=== PATIENT | male | born 1980 | race Caucasian/White ===

== ENCOUNTER 2018-02-01 20:55 | Emergency (ER) | payer OTHER ==
[2018-02-01 21:16] VITALS: BP 185/105; PULSE 85; RESP 18; TEMP 97.8; O2SAT 99
[2018-02-01] MEDS ORDERED: ESCI20TA PO (21:40)
[2018-02-01] MEDS ORDERED: ZOLP10TA3 PO (21:40)
[2018-02-01 21:41] VITALS: RESP 18; O2SAT 100
[2018-02-01 21:42] VITALS: BP 163/103; PULSE 86; RESP 18; O2SAT 100
[2018-02-01 21:44] VITALS: BP 170/100; PULSE 82; RESP 18; O2SAT 100
[2018-02-01] MEDS ORDERED: ONDANSETRON HCL 4 MG/2 ML VIAL IV PUSH ONE (21:45)
[2018-02-01] MEDS ORDERED: MORPHINE SULFATE 4 MG/ML INJ IV PUSH ONE (21:45)
[2018-02-01] MEDS ORDERED: SODIUM CHLORIDE 0.9% FLUSH 10 ML FLUSH IVF PRN (21:45)
--- NOTE | 2018-02-01 21:49 | PD ---
HPI Chief Complaint: Chest Pain Time Seen by Provider: 21:37 Travel History International Travel<30 days: No Contact w/Intl Traveler<30days: No Traveled to known affect area: No History of Present Illness HPI Patient is a 37-year-old male presenting to the emergency department for evaluation of chest pain. Pain started approximately 10 minutes prior to arrival. Patient states he was at home, he had recently eaten dinner. The pain started fairly soon after that. The pain is midsternal in nature on others no radiation to his arm or jaw. He states is pressure-like and burning. He reports his pain is a 5 out of 10, the pain has improved since he was administered nitroglycerin by EMS. He also received 324mg of aspirin chewable. Patient reports a history of hypertension, he states his primary doctor took him off of his medications. Patient had a gastric sleeve last year and has lost 120 pounds which is the reason he is off of his blood pressure medicines. He denies any illicit drug use, he denies any tobacco use. Patient felt short of breath and clammy when the pain started. Symptom onset was sudden, symptom severity was moderate to severe. Symptoms may have been aggravated by food, they were not alleviated until he received nitroglycerin. PFSH Past Medical History Hypertension: Yes ?: Not Past Surgical History Abdominal Surgery: Yes (gastric bypass) Social History Alcohol Use: Yes Tobacco Use: No Substance Use: No Allergies-Medications (Allergen,Severity, Reaction): Coded Allergies: No Known Allergies (Verified Allergy, Unknown, 02/01/18) Reported Meds & Prescriptions Reported Meds & Active Scripts Active Reported Escitalopram (Escitalopram Oxalate) 20 Mg Tab 20 Mg PO DAILY Zolpidem (Zolpidem Tartrate) 10 Mg Tab 10 Mg PO HS PRN Review of Systems Except as stated in HPI: all other systems reviewed are Neg Cardiovascular: Positive: Chest Pain or Discomfort, Diaphoresis Respiratory: Positive: Shortness of Breath Gastrointestinal: Positive: Indigestion Physical Exam Narrative GENERAL: Overweight, well-developed, alert male. Presenting in no acute distress. SKIN: Warm and dry. HEAD: Atraumatic. Normocephalic. EYES: Pupils equal and round. No scleral icterus. No injection or drainage. ENT: No nasal bleeding or discharge. Mucous membranes pink and moist. NECK: Trachea midline. No JVD. CARDIOVASCULAR: Regular rate and rhythm. RESPIRATORY: No accessory muscle use. Clear to auscultation. Breath sounds equal bilaterally. GASTROINTESTINAL: Abdomen soft, non-tender, nondistended. Hepatic and splenic margins not palpable. MUSCULOSKELETAL: Extremities without clubbing, cyanosis, or edema. No obvious deformities. NEUROLOGICAL: Awake and alert. No obvious cranial nerve deficits. Motor grossly within normal limits. Five out of 5 muscle strength in the arms and legs. Normal speech. Legally blind PSYCHIATRIC: Appropriate mood and affect; insight and judgment normal. Data Data Last Documented VS Vital Signs Date Time Temp Pulse Resp B/P (MAP) Pulse Ox O2 Delivery O2 Flow Rate FiO2 02/01/18 21:42 86 18 163/103 (123) 100 Nasal Cannula 2.00 02/01/18 21:16 97.8 Orders Orders Electrocardiogram (02/01/18 21:37) Ckmb (Isoenzyme) Profile (02/01/18 21:37) Complete Blood Count With Diff (02/01/18 21:37) Comprehensive Metabolic Panel (02/01/18 21:37) Magnesium (Mg) (02/01/18 21:37) Prothrombin Time / Inr (Pt) (02/01/18 21:37) Act Partial Throm Time (Ptt) (02/01/18 21:37) Troponin I (02/01/18 21:37) Lipase (02/01/18 21:37) Chest, Single Ap (02/01/18 21:37) Ecg Monitoring (02/01/18 21:37) Bilateral Bp Monitoring (02/01/18 21:37) Iv Access Insert/Monitor (02/01/18 21:37) Oximetry (02/01/18 21:37) Oxygen Administration (02/01/18 21:37) Morphine Inj (Morphine Inj) (02/01/18 21:45) Sodium Chloride 0.9% Flush (Ns Flush) (02/01/18 21:45) Ondansetron Inj (Zofran Inj) (02/01/18 21:45) MDM Medical Decision Making Medical Screen Exam Complete: Yes Emergency Medical Condition: Yes Interpretation(s) Vital Signs Date Time Temp Pulse Resp B/P (MAP) Pulse Ox O2 Delivery O2 Flow Rate FiO2 02/01/18 21:42 86 18 163/103 (123) 100 Nasal Cannula 2.00 02/01/18 21:41 100 Nasal Cannula 2.00 02/01/18 21:41 18 100 Nasal Cannula 2.00 02/01/18 21:16 97.8 85 18 185/105 (131) 99 Differential Diagnosis ACS versus [place] versus metabolic abnormality versus indigestion versus less likely AAA versus PE Narrative Course Patient is 37-year-old male with a history of hypertension presenting with an abrupt onset of midsternal chest pain. Patient was hypertensive on arrival, blood pressure trended down after administration of nitroglycerin. Labs and imaging ordered and pending. Initial EKG shows normal sinus rhythm rate of 79, this is reviewed by my attending physician. Care of patient transferred to Dr. Pink who will determine patient's disposition. Trudy Kinney Feb 01, 2018 21:49
--- NOTE | 2018-02-01 22:14 | RADRPT ---
EXAM DATE/TIME: 02/01/2018 21:45 [facility] COMPARISON: No previous studies available for comparison. INDICATIONS : Chest pain. MEDICAL HISTORY : None. SURGICAL HISTORY : None. ENCOUNTER: Initial ACUITY: 1 day PAIN SCORE: 5/10 LOCATION: middle chest. FINDINGS: A single view of the chest demonstrates the lungs to be symmetrically aerated without evidence of mas s, infiltrate or effusion. The cardiomediastinal contours are unremarkable. Osseous structures are intact. CONCLUSION: No evidence of acute cardiopulmonary disease. Adrian Gonzalez MD on February 01, 2018 at 22:12 Board Certified Radiologist. This report was verified electronically.
[2018-02-01 22:20] LABS: AUTOMATED NEUTROPHIL # 5.1 TH/MM3 (1.8-7.7); BASOPHIL % 0.6 % (0.0-2.0); EOSINOPHIL # 0.2 TH/MM3 (0-0.4); EOSINOPHIL % 2.1 % (0.0-4.0); HEMATOCRIT 40.9 % (39.0-51.0); HEMOGLOBIN 14.1 GM/DL (13.0-17.0); LYMPH % 24.5 % (9.0-44.0); LYMPHOCYTE # 1.9 TH/MM3 (1.0-4.8); MEAN CELL VOLUME 86.9 FL (80.0-100.0); MEAN CORPUSCULAR HEMOGLOBIN 29.9 PG (27.0-34.0); MEAN CORPUSCULAR HGB CONC 34.4 % (32.0-36.0); MEAN PLATELET VOLUME 7.5 FL (7.0-11.0); MONO % 7.7 % (0.0-8.0); MONOCYTE # 0.6 TH/MM3 (0-0.9); NEUT % 65.1 % (16.0-70.0); PLATELET COUNT 289 TH/MM3 (150-450); RED BLOOD COUNT 4.71 MIL/MM3 (4.50-5.90); RED CELL DISTRIBUTION WIDTH 12.8 % (11.6-17.2); WHITE BLOOD COUNT 7.8 TH/MM3 (4.0-11.0)
[2018-02-01 22:40] LABS: INTERNATIONAL NORMALIZED RATIO 1.1 RATIO; PROTHROMBIN TIME - PATIENT 10.7 SEC (9.8-11.6)
[2018-02-01 22:58] LABS: ALKALINE PHOSPHATASE 69 U/L (45-117); ALT (GPT) 38 U/L (12-78); TOTAL BILIRUBIN ADULT 0.4 MG/DL (0.2-1.0); TOTAL PROTEIN 6.6 GM/DL (6.4-8.2); TROPONIN I LESS THAN 0.02 NG/ML (0.02-0.05)
[2018-02-01 23:14] LABS: ALBUMIN 3.6 GM/DL (3.4-5.0); AST (GOT) 68 U/L (15-37); BICARBONATE 27.6 MEQ/L (21.0-32.0); BLOOD UREA NITROGEN 14 MG/DL (7-18); CALCIUM 8.4 MG/DL (8.5-10.1); CHLORIDE 108 MEQ/L (98-107); CREATININE 1.08 MG/DL (0.60-1.30); GLOMERULAR FILTRATION RATE 76 ML/MIN (>89); GLUCOSE,RANDOM 100 MG/DL (74-106); MAGNESIUM 2.1 MG/DL (1.5-2.5); SODIUM (NA) 144 MEQ/L (136-145)
[2018-02-01] MEDS ORDERED: GAVISUS2 PO (23:49)
--- NOTE | 2018-02-01 23:55 | PD ---
Data Data Last Documented VS Vital Signs Date Time Temp Pulse Resp B/P (MAP) Pulse Ox O2 Delivery O2 Flow Rate FiO2 02/01/18 21:44 82 18 170/100 (123) 100 Nasal Cannula 2.00 02/01/18 21:16 97.8 Orders Orders Electrocardiogram (02/01/18 21:37) Ckmb (Isoenzyme) Profile (02/01/18 21:37) Complete Blood Count With Diff (02/01/18 21:37) Comprehensive Metabolic Panel (02/01/18 21:37) Magnesium (Mg) (02/01/18 21:37) Prothrombin Time / Inr (Pt) (02/01/18 21:37) Act Partial Throm Time (Ptt) (02/01/18 21:37) Troponin I (02/01/18 21:37) Lipase (02/01/18 21:37) Chest, Single Ap (02/01/18 21:37) Ecg Monitoring (02/01/18 21:37) Bilateral Bp Monitoring (02/01/18 21:37) Iv Access Insert/Monitor (02/01/18 21:37) Oximetry (02/01/18 21:37) Oxygen Administration (02/01/18 21:37) Morphine Inj (Morphine Inj) (02/01/18 21:45) Sodium Chloride 0.9% Flush (Ns Flush) (02/01/18 21:45) Ondansetron Inj (Zofran Inj) (02/01/18 21:45) CKMB (02/01/18 21:45) CKMB% (02/01/18 21:45) Ed Discharge Order (02/01/18 23:26) Labs Laboratory Tests Test 02/01/18 21:45 White Blood Count 7.8 TH/MM3 Red Blood Count 4.71 MIL/MM3 Hemoglobin 14.1 GM/DL Hematocrit 40.9 % Mean Corpuscular Volume 86.9 FL Mean Corpuscular Hemoglobin 29.9 PG Mean Corpuscular Hemoglobin Concent 34.4 % Red Cell Distribution Width 12.8 % Platelet Count 289 TH/MM3 Mean Platelet Volume 7.5 FL Neutrophils (%) (Auto) 65.1 % Lymphocytes (%) (Auto) 24.5 % Monocytes (%) (Auto) 7.7 % Eosinophils (%) (Auto) 2.1 % Basophils (%) (Auto) 0.6 % Neutrophils # (Auto) 5.1 TH/MM3 Lymphocytes # (Auto) 1.9 TH/MM3 Monocytes # (Auto) 0.6 TH/MM3 Eosinophils # (Auto) 0.2 TH/MM3 Basophils # (Auto) 0.0 TH/MM3 CBC Comment DIFF FINAL Differential Comment Prothrombin Time 10.7 SEC Prothromb Time International Ratio 1.1 RATIO Activated Partial Thromboplast Time 26.4 SEC Blood Urea Nitrogen 14 MG/DL Creatinine 1.08 MG/DL Random Glucose 100 MG/DL Total Protein 6.6 GM/DL Albumin 3.6 GM/DL Calcium Level 8.4 MG/DL Magnesium Level 2.1 MG/DL Alkaline Phosphatase 69 U/L Aspartate Amino Transf (AST/SGOT) 68 U/L Alanine Aminotransferase (ALT/SGPT) 38 U/L Total Bilirubin 0.4 MG/DL Sodium Level 144 MEQ/L Potassium Level 4.1 MEQ/L Chloride Level 108 MEQ/L Carbon Dioxide Level 27.6 MEQ/L Anion Gap 8 MEQ/L Estimat Glomerular Filtration Rate 76 ML/MIN Total Creatine Kinase 114 U/L Creatine Kinase MB 1.0 NG/ML Troponin I LESS THAN 0.02 NG/ML Lipase 146 U/L [facility] Medical Record Reviewed: Yes Supervised Visit with FLORINDA: Yes Narrative Course CBC & BMP Diagram 02/01/18 21:45 Total Protein 6.6, Albumin 3.6, Calcium Level 8.4 L, Magnesium Level 2.1, Alkaline Phosphatase 69, Aspartate Amino Transf (AST/SGOT) 68 H, Alanine Aminotransferase (ALT/SGPT) 38, Total Bilirubin 0.4 EKG shows a sinus rhythm with a rate of 79 and possible LVH type morphology Chest x-ray shows no acute cardiopulmonary disease Patient was reassessed at 11:45 PM at that point reported feeling much better. His risk profile is really fairly unremarkable with his age and no chronic disease aside from hypertension. In this scenario coronary occlusion is considered quite a bit unlikely. The patient understands a stress test as an outpatient with cardiology evaluation is in essence the only way to ensure that coronaries are clean. Patient appears quite reliable and has verbalized agreement to follow-up with cardiology in 2 weeks. He reports insurance and needs to do so. Furthermore the symptoms began in association with oral intake earlier today again lending evidence to diagnose against acute coronary disease. Pulmonary disease is considered also quite a bit less likely. Return precautions discussed. Diagnosis Primary Impression: Chest pain Qualified Codes: R07.9 - Chest pain, unspecified Additional Impression: GERD (gastroesophageal reflux disease) Referrals: Enoch Pink DO 2 days Med/Other Pt SpecificInfo: Prescription(s) given Scripts Aluminum Hydroxide-Mag Carb Liq (Gaviscon Extra Strength R Liq) 508-475 Mg/10 Ml Susp 10-20 ML PO QID Y for HEARTBURN for 10 Days, ML 0 Refills Maximum 80 mL/24 hrs. Prov: Gordon Pink MD 02/01/18 Disposition: DISCHARGE HOME Condition: Stable Gordon Pink MD Feb 01, 2018 23:55
[2018-02-02 00:02] VITALS: BP 165/87
[2018-02-03] MEDS ORDERED: HYDR-3288 PO (09:52)
--- NOTE | 2018-02-03 17:49 | EKG ---
Date Performed: 02/01/2018 Time Performed: 21:41:16 PTAGE: 37 years EKG: Sinus rhythm MODERATE VOLTAGE CRITERIA FOR LVH, CONSIDER NORMAL VARIANT BORDERLINE ECG NO PREVIOUS TRACING DOCTOR: Adonay Lamas Interpretating Date/Time 02/03/2018 17:48:11
== END 2018-02-02 00:03 | disposition home or self-care (01) ==
LOC: NEPC 20:55
DX: R07.9 Chest pain, unspecified (principal); R06.02 Shortness of breath; K21.9 Gastro-esophageal reflux disease without esophagitis; I10 Essential (primary) hypertension; Z79.899 Other long term (current) drug therapy
CPT/HCPCS: 71045; 80053; 82550; 82552; 83690; 83735; 84484; 85025; 85610; 85730; 93005; 96374; 96375; 99285; J2270; J2405

== ENCOUNTER 2018-02-02 07:28 | Inpatient (IN) | payer OTHER ==
[~2018-02-02] VITALS: Ht 185.4 cm; Wt 125.5 kg
[~2018-02-02 07:28] MED LIST: ESCI20TA PO; GAVISUS2 PO; ZOLP10TA3 PO
[2018-02-02 07:31] VITALS: BP 195/117; PULSE 69; RESP 22; TEMP 98.4; O2SAT 100
[2018-02-02] MEDS ORDERED: SODIUM CHLOR 0.9% 1000 ML INJ 1,000 ML IV SCH (08:10)
[2018-02-02] MEDS ORDERED: HYDROmorphone HCL PF 1 MG/ML VIAL IVS ONE (08:15)
[2018-02-02] MEDS ORDERED: ONDANSETRON HCL 4 MG/2 ML VIAL IVP ONE (08:15)
[2018-02-02] MEDS ORDERED: SODIUM CHLORIDE 0.9% FLUSH 10 ML FLUSH IV FLUSH PRN (08:15)
--- NOTE | 2018-02-02 08:17 | PD ---
HPI Chief Complaint: GI Complaint Time Seen by Provider: 07:57 Travel History International Travel<30 days: No Contact w/Intl Traveler<30days: No Traveled to known affect area: No History of Present Illness HPI This patient complains of pain in the epigastrium. Pain is moderate to severe in nature. It radiates up into his chest. He was seen here yesterday evening for the same thing. He says he is no better but seems worse. He is having dry heaves and nausea and vomiting. He says he is vomiting bile through the night. No fever or diarrhea. No lower quadrant abdominal pains. Duration is one day. No alleviating factors. No exacerbating factors. PFSH Past Medical History Anxiety: Yes Depression: Yes Hypertension: Yes Insomnia: Yes Past Surgical History Abdominal Surgery: Yes (gastric bypass) Social History Alcohol Use: Yes Tobacco Use: No Substance Use: No Allergies-Medications (Allergen,Severity, Reaction): Coded Allergies: No Known Allergies (Verified Allergy, Unknown, 02/01/18) Reported Meds & Prescriptions Reported Meds & Active Scripts Active Reported Escitalopram (Escitalopram Oxalate) 20 Mg Tab 20 Mg PO DAILY Zolpidem (Zolpidem Tartrate) 10 Mg Tab 10 Mg PO HS PRN Review of Systems General / Constitutional: No: Fever Eyes: No: Visual changes HENT: No: Headaches Cardiovascular: Positive: Chest Pain or Discomfort Respiratory: No: Shortness of Breath Gastrointestinal: Positive: Nausea, Vomiting, Abdominal Pain Genitourinary: No: Dysuria Musculoskeletal: No: Pain Skin: No Rash Neurologic: No: Weakness Psychiatric: No: Depression Endocrine: No: Polydipsia Hematologic/Lymphatic: No: Easy Bruising Physical Exam Narrative GENERAL: Well-nourished, well-developed patient with abdominal pain and chest pain . SKIN: Focused skin assessment reveals no rash and nodules. Skin is Warm and dry. HEAD: Atraumatic. Normocephalic. EYES: Pupils equal and round. No scleral icterus. No injection or drainage. ENT: No nasal bleeding or discharge. Mucous membranes pink and moist. NECK: Trachea midline. No JVD. CARDIOVASCULAR: Regular rate and rhythm. No murmur appreciated. RESPIRATORY: No accessory muscle use. Clear to auscultation. Breath sounds equal bilaterally. GASTROINTESTINAL: Abdomen soft, epigastrium is very tender without rebound or guarding, nondistended. Hepatic and splenic margins not palpable. MUSCULOSKELETAL: No obvious deformities. No clubbing. No cyanosis. No edema. NEUROLOGICAL: Awake and alert. No obvious cranial nerve deficits. Motor grossly within normal limits. Normal speech. PSYCHIATRIC: Appropriate mood and affect; insight and judgment normal. Data Data Last Documented VS Vital Signs Date Time Temp Pulse Resp B/P (MAP) Pulse Ox O2 Delivery O2 Flow Rate FiO2 02/02/18 10:56 81 20 144/97 (113) 97 Room Air 02/02/18 07:31 98.4 Orders Orders Complete Blood Count With Diff (02/02/18 08:10) Comprehensive Metabolic Panel (02/02/18 08:10) Lipase (02/02/18 08:10) Prothrombin Time / Inr (Pt) (02/02/18 08:10) Act Partial Throm Time (Ptt) (02/02/18 08:10) Ct Abd/Pel W Iv Contrast(Rout) (02/02/18 08:10) Iv Access Insert/Monitor (02/02/18 08:10) Ecg Monitoring (02/02/18 08:10) Oximetry (02/02/18 08:10) NPO (02/02/18 08:10) Ondansetron Inj (Zofran Inj) (02/02/18 08:15) Sodium Chlor 0.9% 1000 Ml Inj (Ns 1000 M (02/02/18 08:10) Sodium Chloride 0.9% Flush (Ns Flush) (02/02/18 08:15) Electrocardiogram (02/02/18 08:10) Hydromorphone Pf Inj (Dilaudid Pf Inj) (02/02/18 08:45) Iohexol 350 Inj (Omnipaque 350 Inj) (02/02/18 09:09) Admit To Inpatient (02/02/18 ) Code Status (02/02/18 10:53) Vital Signs (Adult) Q4H (02/02/18 10:53) Activity Oob With Assistance (02/02/18 10:53) Intake + Output RUSSEL.QSHIFT (02/02/18 10:53) Diet Npo (02/02/18 Lunch) Comprehensive Metabolic Panel (02/03/18 06:00) Complete Blood Count With Diff (02/03/18 06:00) Urinalysis - C+S If Indicated (02/02/18 10:53) Case Management Consult (02/02/18 10:53) Scd Bilateral/Knee High RUSSEL.BID (02/02/18 10:53) Naloxone Inj (Narcan Inj) (02/02/18 11:00) Docusate Sodium-Senna (Renita-Colace) (02/02/18 21:00) Magnesium Hydroxide Liq (Milk Of Magnesi (02/02/18 11:00) Sennosides (Senokot) (02/02/18 11:00) Bisacodyl Supp (Dulcolax Supp) (02/02/18 11:00) Lactulose Liq (Lactulose Liq) (02/02/18 11:00) Inpatient Certification (02/02/18 ) Consult General Surgery (02/02/18 ) Consult Gastroenterology (02/02/18 ) Mri Mrcp W & W/O Contrast (02/02/18 ) (Hub Use Only)Inp Phy Cons/Ref (02/02/18 ) (Hub Use Only)Inp Phy Cons/Ref (02/02/18 ) Labs Laboratory Tests Test 02/02/18 08:25 White Blood Count 9.3 TH/MM3 Red Blood Count 5.35 MIL/MM3 Hemoglobin 16.1 GM/DL Hematocrit 45.8 % Mean Corpuscular Volume 85.6 FL Mean Corpuscular Hemoglobin 30.0 PG Mean Corpuscular Hemoglobin Concent 35.1 % Red Cell Distribution Width 13.0 % Platelet Count 338 TH/MM3 Mean Platelet Volume 7.6 FL Neutrophils (%) (Auto) 87.1 % Lymphocytes (%) (Auto) 5.5 % Monocytes (%) (Auto) 5.8 % Eosinophils (%) (Auto) 0.2 % Basophils (%) (Auto) 1.4 % Neutrophils # (Auto) 8.1 TH/MM3 Lymphocytes # (Auto) 0.5 TH/MM3 Monocytes # (Auto) 0.5 TH/MM3 Eosinophils # (Auto) 0.0 TH/MM3 Basophils # (Auto) 0.1 TH/MM3 CBC Comment AUTO DIFF Differential Comment AUTO DIFF CONFIRMED Prothrombin Time 10.7 SEC Prothromb Time International Ratio 1.1 RATIO Activated Partial Thromboplast Time 23.2 SEC Blood Urea Nitrogen 12 MG/DL Creatinine 1.15 MG/DL Random Glucose 161 MG/DL Total Protein 8.2 GM/DL Albumin 4.6 GM/DL Calcium Level 9.4 MG/DL Alkaline Phosphatase 107 U/L Aspartate Amino Transf (AST/SGOT) 573 U/L Alanine Aminotransferase (ALT/SGPT) 430 U/L Total Bilirubin 2.8 MG/DL Sodium Level 140 MEQ/L Potassium Level 3.4 MEQ/L Chloride Level 101 MEQ/L Carbon Dioxide Level 29.1 MEQ/L Anion Gap 10 MEQ/L Estimat Glomerular Filtration Rate 71 ML/MIN Lipase 1062 U/L [facility] Medical Decision Making Medical Screen Exam Complete: Yes Emergency Medical Condition: Yes Medical Record Reviewed: Yes Differential Diagnosis Differential diagnosis includes pancreatitis, biliary colic, hepatitis, GERD, peptic ulcer disease. Narrative Course I have reviewed the patient's electronic medical record. Reviewed his visit from yesterday evening including labs and chest x-ray I suspect this patient has an abdominal situation rather than a chest situation going on. He has epigastric pain radiating into the chest. IV was placed and I gave him a dose of IV Zofran and IV Dilaudid for symptom relief He looks very uncomfortable I will repeat an EKG but I believe he needs an abdominal pain workup Labs and CT ordered Does have history of gastric sleeve which could possibly be related. Extensive workup was done. CT reveals acute cholecystitis changes LFT elevation and lipase elevation suggest some degree of gallstone pancreatitis CBC is normal He feels improved after pain and nausea medicine I reviewed the case with the medical residents will admit. GI will be consulted and MRCP ordered. I discussed the case with general surgeon Dr. Ugarte who will also be consulted to assist with management Diagnosis Primary Impression: Acute cholecystitis Additional Impression: Acute gallstone pancreatitis Admitting Information Admitting Physician Requests: Admit Kmaeron Song MD Feb 02, 2018 08:17
[2018-02-02 08:19] VITALS: BP 195/98; PULSE 61
[2018-02-02 08:36] LABS: AUTOMATED NEUTROPHIL # 8.1 TH/MM3 (1.8-7.7); BASOPHIL # 0.1 TH/MM3 (0-0.2); BASOPHIL % 1.4 % (0.0-2.0); EOSINOPHIL % 0.2 % (0.0-4.0); HEMATOCRIT 45.8 % (39.0-51.0); HEMOGLOBIN 16.1 GM/DL (13.0-17.0); LYMPH % 5.5 % (9.0-44.0); LYMPHOCYTE # 0.5 TH/MM3 (1.0-4.8); MEAN CELL VOLUME 85.6 FL (80.0-100.0); MEAN CORPUSCULAR HGB CONC 35.1 % (32.0-36.0); MEAN PLATELET VOLUME 7.6 FL (7.0-11.0); MONO % 5.8 % (0.0-8.0); MONOCYTE # 0.5 TH/MM3 (0-0.9); NEUT % 87.1 % (16.0-70.0); PLATELET COUNT 338 TH/MM3 (150-450); RED BLOOD COUNT 5.35 MIL/MM3 (4.50-5.90); WHITE BLOOD COUNT 9.3 TH/MM3 (4.0-11.0)
[2018-02-02] MEDS ORDERED: HYDROmorphone HCL PF 2 MG/ML VIAL IV ONE (08:45)
[2018-02-02 08:47] LABS: INTERNATIONAL NORMALIZED RATIO 1.1 RATIO; PROTHROMBIN TIME - PATIENT 10.7 SEC (9.8-11.6)
[2018-02-02 09:04] LABS: ALBUMIN 4.6 GM/DL (3.4-5.0); ALKALINE PHOSPHATASE 107 U/L (45-117); ALT (GPT) 430 U/L (12-78); AST (GOT) 573 U/L (15-37); BICARBONATE 29.1 MEQ/L (21.0-32.0); BLOOD UREA NITROGEN 12 MG/DL (7-18); CALCIUM 9.4 MG/DL (8.5-10.1); CHLORIDE 101 MEQ/L (98-107); CREATININE 1.15 MG/DL (0.60-1.30); GLOMERULAR FILTRATION RATE 71 ML/MIN (>89); GLUCOSE,RANDOM 161 MG/DL (74-106); SODIUM (NA) 140 MEQ/L (136-145); TOTAL BILIRUBIN ADULT 2.8 MG/DL (0.2-1.0); TOTAL PROTEIN 8.2 GM/DL (6.4-8.2)
[2018-02-02 09:06] VITALS: BP 155/88; PULSE 74; RESP 18; O2SAT 99
[2018-02-02] MEDS ORDERED: IOHEXOL 350 MG/ML 10 ML VIAL (for RAD DIAG) IVCONTRAST ONE (09:09)
--- NOTE | 2018-02-02 09:22 | RADRPT ---
EXAM DATE/TIME: 02/02/2018 08:55 [facility] COMPARISON: No previous studies available for comparison. INDICATIONS : Epigastric pain, nausea, vomiting IV CONTRAST: 96 cc Omnipaque 350 (iohexol) IV ORAL CONTRAST: No oral contrast ingested. RADIATION DOSE: 17.02 CTDIvol (mGy) ; Patient body habitus MEDICAL HISTORY : Hypertension. SURGICAL HISTORY : Gastric bypass. ENCOUNTER: Initial ACUITY: 1 day PAIN SCALE: 5/10 LOCATION: Bilateral Epigastric Complete Appropriate Items [id number]: ID X 2: Complete NameDate of BirthPatient Name Band Estimated radiation dose: Verified protocol and related expected exam dose. Education: Nurse/Technologist explained procedure to patient/family. Patient/family demonstrates understanding of procedure. Comments: Images Restored: None for Restore Technologist(s) : SONIA WONG MR#[id number] :76 Exam date/desc:February 02, 2018CT ABDOMEN & PELVIS W CONTRAST TECHNIQUE: Volumetric scanning of the abdomen and pelvis was performed. Using automated exposure control and ad justment of the mA and/or kV according to patient size, radiation dose was kept as low as reasonably achievable to obtain optimal diagnostic quality images. DICOM format image data is available electro nically for review and comparison. FINDINGS: LOWER LUNGS: The visualized lower lungs are clear. LIVER: Homogeneous density without lesion. There is no dilation of the biliary tree. The gallbladder is mil dly distended demonstrates wall thickening and minimal pericholecystic fluid suggestive of acute chol ecystitis. Clinical correlation is recommended. No calcified gallstone is noted. SPLEEN: Normal size without lesion. PANCREAS: Within normal limits. KIDNEYS: Normal in size and shape. There is no mass, stone or hydronephrosis. ADRENAL GLANDS: Within normal limits. VASCULAR: There is no aortic aneurysm. BOWEL/MESENTERY: The stomach, small bowel, and colon demonstrate no acute abnormality. There is no free intraperitone al air or fluid. The appendix is normal. ABDOMINAL WALL: Within normal limits. RETROPERITONEUM: There is no lymphadenopathy. BLADDER: No wall thickening or mass. REPRODUCTIVE: Within normal limits. INGUINAL: There is no lymphadenopathy or hernia. MUSCULOSKELETAL: Mild degenerative changes and scoliosis of the thoracolumbar spine are noted. CONCLUSION: 1. Mildly distended, thick-walled gallbladder with minimal pericholecystic fluid suggesting acute cho lecystitis. Clinical correlation is recommended. 2. Mild degenerative changes and scoliosis of the thoracolumbar spine. Johnnie Bowden MD on February 02, 2018 at 9:13 Board Certified Radiologist. This report was verified electronically.
[2018-02-02 10:56] VITALS: BP 144/97; PULSE 81; RESP 20; O2SAT 97
[2018-02-02] MEDS ORDERED: BISACODYL 10 MG SUPP RECTAL PRN (11:00)
[2018-02-02] MEDS ORDERED: LACTULOSE SYRUP 20 GM/30 ML CUP PO PRN (11:00)
[2018-02-02] MEDS ORDERED: SENNOSIDES 8.6 MG TAB PO PRN (11:00)
[2018-02-02] MEDS ORDERED: MAGNESIUM HYDROXIDE SUSP 30 ML CUP PO PRN (11:00)
[2018-02-02] MEDS ORDERED: NALOXONE HCL 0.4 MG/ML AMP IV PUSH PRN ×2 (11:00→11:45)
--- NOTE | 2018-02-02 11:30 | HHI.HP ---
[facility] Service Family Medicine Primary Care Physician Dr. Blanco ([place], [place]) Admission Diagnosis Gallstone Pancreatitis Diagnoses: International Travel<30 Days: No Contact w/Intl Traveler<30days: No History of Present Illness Patient is a 37 year old male who presented via [facility] for severe nausea, vomiting , and abdominal pain and was found to have cholecystitis on evaluation. This admission is associated with second ED visit over the last 24 hours. He came to ED yesterday evening because he had snack 8pm, and five minutes later had significant chest/epigastric pain. On arrival to ED workup resulted in troponin negative, EKG normal, CXR wnl. Blood work at that time unremarkable with notably normal lipase and liver enzymes. He was sent home. At home overnight, patient starting having cold chills, burping with nausea and then vomiting mucus and bile.He reported some blood in vomitus more recently, thinks it was from his throat which is now sore. Vomited at least 15x since symptoms started, but improved since receiving antiemetics. He notes the abdominal pain located in epigastric area is constant, radiating to bilateral scapular area. Initially pain was sharp, stabbing, now more of an achy, throbbing pain. "Didn't feel right." No fevers at home. No sick contacts. Has loose stool at baseline but they have been worse over the last few weeks. He has not had these symptoms in the past before but notes he had gastric sleeve surgery 2016. He has epigastric pain at that time and was discharged from the urgent care with two weeks of an antacid medication (does not know which). He has not followed up with a doctor since then. Pain medications given in ED helping with the pain. (Lilia Costa MD) Review of Systems Constitutional: COMPLAINS OF: Diaphoretic episodes, Chills, DENIES: Fever, Weight gain, Weight loss Eyes: COMPLAINS OF: Blurred vision (chronic 20/400 bilaterally), DENIES: Diplopia Respiratory: DENIES: Cough, Wheezing, Sputum production, Shortness of breath Cardiovascular: DENIES: Chest pain (chronic) Gastrointestinal: COMPLAINS OF: Abdominal pain, Diarrhea, Nausea, Vomiting, DENIES: Black stools, Bloody stools, Constipation Genitourinary: DENIES: Urinary frequency, Urinary incontinence, Hematuria, Penile Discharge, Testicular Pain, Testicular Swelling Musculoskeletal: COMPLAINS OF: Back pain Integumentary: DENIES: Pruritus, Rash Hematologic/lymphatic: DENIES: Bruising, Lymphadenopathy Neurologic: DENIES: Headache, Localized weakness, Poor Balance Psychiatric: COMPLAINS OF: Depression, DENIES: Anxiety (Lilia Costa MD) Past Family Social History Past Medical History BEST Disease - legally blind Testicular cancer 2016 - s/p chemotherapy, left testis removal in 2016 Depression - chronic HTN - resolved after gastric sleeve procedure and associated weight loss Past Surgical History Gastric Sleeve August 2016 - lost 110-120 lb Testicular removal 2015 Reported Medications Reported Meds & Active Scripts Active Reported Escitalopram (Escitalopram Oxalate) 20 Mg Tab 20 Mg PO DAILY Zolpidem (Zolpidem Tartrate) 10 Mg Tab 10 Mg PO HS PRN (Lilia Costa MD) Allergies: Coded Allergies: No Known Allergies (Verified Allergy, Unknown, 02/01/18) Active Ordered Medications Inpatient Medications Bisacodyl (Dulcolax Supp) 10 mg DAILY PRN RECTAL SEVERE CONSITIPATION; Start at 11:00; Status UNV Hydromorphone HCl (Dilaudid Pf Inj) 1 mg ONCE ONCE IV Last administered on at 08:38; Start 02/02/18 at 08:45; Stop 02/02/18 at 08:46; Status DC Lactulose (Lactulose Liq) 30 ml DAILY PRN PO SEVERE CONSITIPATION; Start at 11:00; Status UNV Magnesium Hydroxide (Milk Of Magnesia Liq) 30 ml Q12H PRN PO Mild constipation ; Start 02/02/18 at 11:00; Status UNV Naloxone HCl (Narcan Inj) 0.4 mg UNSCH PRN IV PUSH SEE LABEL COMMENTS; Start at 11:00; Status UNV Ondansetron HCl (Zofran Inj) 4 mg ONCE ONCE IVP Last administered on at 08:18; Start 02/02/18 at 08:15; Stop 02/02/18 at 08:16; Status DC Senna/Docusate Sodium (Renita-Colace) 1 tab BID PO ; Start 02/02/18 at 21:00; Status UNV Sennosides (Senokot) 17.2 mg Q12H PRN PO Moderate constipation; Start 02/02/18 at 11:00; Status UNV Sodium Chloride (NS Flush) 2 ml UNSCH PRN IV FLUSH FLUSH AFTER USING IV ACCESS ; Start 02/02/18 at 08:15 Family History Mother - skin cancer Father - HTN Sister - cholelithiasis requiring removal Daughter: BEST disease Social History Patient is from town near [place], [place] Currently living at the [facility] in [place], living in dormitory 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 SKIN: No rashes, ecchymoses or lesions. Cool and dry. Tattoos noted on chest, back, arm HEAD: Atraumatic. Normocephalic. No temporal or scalp tenderness. EYES: Pupils equal round and reactive. Extraocular motions intact. Blind. No scleral icterus. No injection or drainage. ENT: Nose without bleeding or purulent drainage. Throat without erythema, tonsillar hypertrophy or exudate. Uvula midline. Airway patent. NECK: Trachea midline. No JVD or lymphadenopathy. Supple, nontender, no meningeal signs. CARDIOVASCULAR: Regular rate and rhythm without murmurs, gallops, or rubs. RESPIRATORY: Clear to auscultation. Breath sounds equal bilaterally. No wheezes , rales, or rhonchi. No CVA tenderness. GASTROINTESTINAL: Hyperactive bowel sounds. RUQ and epigastric tenderness to palpation. Abdomen soft, non-tender, nondistended. No hepato-splenomegaly, or palpable masses. No guarding. MUSCULOSKELETAL: Extremities without clubbing, cyanosis, or edema. No joint tenderness, effusion, or edema noted. No calf tenderness. NEUROLOGICAL: Awake and alert. Cranial nerves II through XII intact. Motor and sensory grossly within normal limits. Five out of 5 muscle strength in all muscle groups. Normal speech. Laboratory Laboratory Tests Test 02/02/18 08:25 White Blood Count 9.3 Red Blood Count 5.35 Hemoglobin 16.1 Hematocrit 45.8 Mean Corpuscular Volume 85.6 Mean Corpuscular Hemoglobin 30.0 Mean Corpuscular Hemoglobin Concent 35.1 Red Cell Distribution Width 13.0 Platelet Count 338 Mean Platelet Volume 7.6 Neutrophils (%) (Auto) 87.1 Lymphocytes (%) (Auto) 5.5 Monocytes (%) (Auto) 5.8 Eosinophils (%) (Auto) 0.2 Basophils (%) (Auto) 1.4 Neutrophils # (Auto) 8.1 Lymphocytes # (Auto) 0.5 Monocytes # (Auto) 0.5 Eosinophils # (Auto) 0.0 Basophils # (Auto) 0.1 CBC Comment AUTO DIFF Differential Comment AUTO DIFF CONFIRMED Prothrombin Time 10.7 Prothromb Time International Ratio 1.1 Activated Partial Thromboplast Time 23.2 Blood Urea Nitrogen 12 Creatinine 1.15 Random Glucose 161 Total Protein 8.2 Albumin 4.6 Calcium Level 9.4 Alkaline Phosphatase 107 Aspartate Amino Transf (AST/SGOT) 573 Alanine Aminotransferase (ALT/SGPT) 430 Total Bilirubin 2.8 Sodium Level 140 Potassium Level 3.4 Chloride Level 101 Carbon Dioxide Level 29.1 Anion Gap 10 Estimat Glomerular Filtration Rate 71 Lipase 1062 (Lilia Costa MD) Result Diagram: 02/02/1882402/02/18824 Imaging Last Impressions Abdomen/Pelvis CT 02/02/18 0810 Signed Impressions: Service Date/Time: Friday, February 02, 2018 08:55 - CONCLUSION: 1. Mildly distended, thick-walled gallbladder with minimal pericholecystic fluid suggesting acute cholecystitis. Clinical correlation is recommended. 2. Mild degenerative changes and scoliosis of the thoracolumbar spine. Johnnie Bowden MD (Lilia Costa MD) Caprini VTE Risk Assessment Caprini VTE Risk Assessment: No/Low Risk (score <= 1) Caprini Risk Assessment Model Point Value = 1 Point Value = 2 Point Value = 3 Point Value = 5 Age 41-60 Minor surgery BMI > 25 kg/m2 Swollen legs Varicose veins or History of unexplained or recurrent spontaneous Oral contraceptives or hormone replacement Sepsis (< 1 month) Serious lung disease, including pneumonia (< 1 month) Abnormal pulmonary function Acute myocardial infarction Congestive heart failure (< 1 month) History of inflammatory bowel disease Medical patient at bed rest Age 61-74 Arthroscopic surgery Major open surgery (> 45 min) Laparoscopic surgery (> 45 min) Malignancy Confined to bed (> 72 hours) Immobilizing plaster cast Central venous access Age >= 75 History of VTE Family history of VTE Factor V Leiden Prothrombin [id number] Lupus anticoagulant Anticardiolipin antibodies Elevated serum homocysteine Heparin-induced thrombocytopenia Other congenital or acquired thrombophilia Stroke (< 1 month) Elective arthroplasty Hip, pelvis, or leg fracture Acute spinal cord injury (< 1 month) Prophylaxis Regimen Total Risk Factor Score Risk Level Prophylaxis Regimen 0-1 Low Early ambulation 2 Moderate Order ONE of the following: *Sequential Compression Device (SCD) *Heparin 5000 units SQ BID 3-4 Higher Order ONE of the following medications: *Heparin 5000 units SQ TID *Enoxaparin/Lovenox 40 mg SQ daily (WT < 150 kg, CrCl > 30 mL/min) *Enoxaparin/Lovenox 30 mg SQ daily (WT < 150 kg, CrCl > 10-29 mL/min) *Enoxaparin/Lovenox 30 mg SQ BID (WT < 150 kg, CrCl > 30 mL/min) AND/OR *Sequential Compression Device (SCD) 5 or more Highest Order ONE of the following medications: *Heparin 5000 units SQ TID (Preferred with Epidurals) *Enoxaparin/Lovenox 40 mg SQ daily (WT < 150 kg, CrCl > 30 mL/min) *Enoxaparin/Lovenox 30 mg SQ daily (WT < 150 kg, CrCl > 10-29 mL/min) *Enoxaparin/Lovenox 30 mg SQ BID (WT < 150 kg, CrCl > 30 mL/min) AND *Sequential Compression Device (SCD) (Lilia Costa MD) Assessment and Plan Assessment and Plan 37-year-old male admitted with cholecystitis and pancreatitis, suspect gallstone pancreatitis. Will admit for fluid management, antibiotics, and Gastroenterology and Surgery consulted. Expect a 2-3 day inpatient stay for further workup and surgical management Code Status Full code Discussed Condition With Seen and discussed with Dr. Yohana King, attending and Dr. Tim Gipson, PGY 1 (Lilia Costa MD) Attending Attestation This gentleman was seen, examined and discussed with the medicine team. History of the present illness is as noted above. See history and physical examination for past family and social history as well as review of systems. 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 He is here in school for 4 months at the [employer]. 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 He did have gastric banding surgery in August 2016 and has lost a significant amount of weight. His sister also had gastric bypass, and experienced problems with her gallbladder. He has the upper abdominal discomfort as documented above. Currently he is fairly comfortable. Reports low flank pain bilaterally which has been relieved with Dilaudid. Exam is significant for striae of the upper arms and chest wall and axillary areas, upper abdominal tenderness to palpation. Otherwise his exam is essentially normal. We will obtain MRCP, start antibiotics due to pancreatic enzyme elevation, provide pain and nausea medications and GI and surgical consultations. I agree with the plan. (Yohana King MD) Problem List: (1) Acute gallstone pancreatitis ICD Codes: K85.10 - Biliary acute pancreatitis without necrosis or infection Status: Acute Plan: Patient presenting with severe n/v and abdominal pain. Afebrile. Labs not showing leukocytosis but lipase in 1000s and LFTs elevated >15X ULN compared to labs done 02/01/18. CT abdomen 02/02: gallbladder wall thickness suggestive of cholecystitis Has history of severe obesity with gastric sleeve surgery in 2015 Personal history of obesity and family history of gallstones noted as risk factors Had fatty meal prior to symptom onset Of note, presented with chest pain 02/01 with negative troponin, CXR, and EKG LDH >350 Glucose <250 Per [place] Criteria does not meet criteria for severe pancreatitis at time of admission Plan: Admit to inpatient Will start Rocephin 1g IV daily Agressive IVF: NS bolus of 1 liter x 2, then LR at 250 cc/hr with 20meq KCl per L Zofran 4mg IV q 6hr PRN nausea, vomiting NPO for now MRCP ordered General surgery consulted Gastroenterology consulted Pain control with Acetaminophen 650mg PO Pain 1-2, Dilaudid 0.5mg IV q 3hr pain 3-5, Dilaudid 1mg IV q 3hr pain 6-10. Will re-evaluate for breakthrough pain Get UA for evaluation of lower back pain though suspect related to retching 2/2 vomiting (2) Depression, major ICD Codes: F32.9 - Major depressive disorder, single episode, unspecified Status: Chronic Plan: Continue Escitalopram 20mg daily once no longer NPO. Chronic. Not currently symptomatic. 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 Acuity reportedly 20/400 to 20/ 800. Activity OOB with assistance Other assistance to be offered as needed (4) Fluids/Electrolytes/Nutrition/Prophylaxis/PRNs Status: Acute Plan: Fluids: LR @ 250cc/hr with 20meq KCl/L Electrolytes: Monitor and replete PRN Diet: NPO Prophylaxis: patient is ambulatory and likely pre-op. Will hold pharmacalogic PPX. SCDs while in bed ordered PRNs: Vasotec 1.25mg q6hr PRN SBP >180, DBP > 100 (Lilia Costa MD) Physician Certification 2 Midnight Certification Type: Admission for Inpatient Services Order for Inpatient Services The services are ordered in accordance with Medicare regulations or non- Medicare payer requirements, as applicable. In the case of services not specified as inpatient-only, they are appropriately provided as inpatient services in accordance with the 2-midnight benchmark. Estimated LOS (days): 3 days is the estimated time the patient will need to remain in the hospital, assuming treatment plan goals are met and no additional complications. Post-Hospital Plan: Home (Lilia Costa MD) Problem Qualifiers (1) Depression, major: Qualified Codes: F32.1 - Major depressive disorder, single episode, moderate Lilia Costa MD Feb 02, 2018 11:30 Yohana King MD Feb 02, 2018 13:57
[2018-02-02] MEDS ORDERED: ONDANSETRON HCL 4 MG/2 ML VIAL IV PUSH PRN (11:45)
[2018-02-02] MEDS ORDERED: ACETAMINOPHEN 325 MG TAB PO PRN (11:45)
[2018-02-02] MEDS ORDERED: SODIUM CHLOR 0.9% 1000 ML INJ 1,000 ML IV ONE (12:30)
[2018-02-02] MEDS: HYDROmorphone HCL PF 2 MG/ML VIAL IV PUSH PRN ×4 (13:29→23:17)
[2018-02-02] MEDS: POTASSIUM CHLORIDE INJ 20 MEQ in LACTATED RINGER'S 1000 ML INJ 1,000 ML IV SCH ×2 (13:29→21:15)
--- NOTE | 2018-02-02 14:15 | PD.CONS ---
HPI History of Present Illness This is a 37 year old male who presented for epigastric pain and n/v. he came to ER yesterday for abd pain thinking he had TX but that was ruled out and he was discharged. Pain worsened and last night he developed n/v. The pain started after having sliders for lunch. he had similar episode 3 [address] and [address] scan done and told he had gastritis. He denies diarrhea, constipation, sick contacts, blood in stool, black tarry stool. He did see scant blood after several episodes vomiting. CT suggestive acute cholecystitis, pancreas normal. (Lolly Dickens) PFSH Past Medical History testicular ca s/p surgery Past Surgical History bariatric surgery (Lolly Dickens) Coded Allergies: No Known Allergies (Verified Allergy, Unknown, 02/01/18) Family History obesity Social History occasional etoh no tobacco or illicit drug use (Lolly Dickens) Review of Systems Constitutional: DENIES: Fever Endocrine: DENIES: Polydipsia Eyes: COMPLAINS OF: Blurred vision Ears, nose, mouth, throat: DENIES: Hearing loss Respiratory: DENIES: Cough Cardiovascular: DENIES: Chest pain Gastrointestinal: COMPLAINS OF: Abdominal pain, Nausea, Vomiting, DENIES: Diarrhea Genitourinary: DENIES: Hematuria Musculoskeletal: DENIES: Muscle aches Integumentary: DENIES: Abnormal pigmentation Hematologic/lymphatic: DENIES: Bruising Immunologic/allergic: DENIES: Eczema Neurologic: DENIES: Abnormal gait Psychiatric: DENIES: Confusion (Lolly Dickens) GI Exam Vitals I&O Vital Signs Date Time Temp Pulse Resp B/P (MAP) Pulse Ox O2 Delivery O2 Flow Rate FiO2 02/02/18 10:56 81 20 144/97 (113) 97 Room Air 02/02/18 09:06 74 18 155/88 (110) 99 Room Air 02/02/18 08:19 61 195/98 (130) 02/02/18 07:31 98.4 69 22 195/117 (143) 100 I/O 02/01/18 02/01/18 02/01/18 02/02/18 02/02/18 02/02/18 07:00 15:00 23:00 07:00 15:00 23:00 Intake Total 1000 ml Balance 1000 ml Intake IV Total 1000 ml Imaging Last Impressions Abdomen/Pelvis CT 02/02/18 0810 Signed Impressions: Service Date/Time: Friday, February 02, 2018 08:55 - CONCLUSION: 1. Mildly distended, thick-walled gallbladder with minimal pericholecystic fluid suggesting acute cholecystitis. Clinical correlation is recommended. 2. Mild degenerative changes and scoliosis of the thoracolumbar spine. Johnnie Bowden MD Laboratory Test 02/02/18 08:25 White Blood Count 9.3 TH/MM3 Red Blood Count 5.35 MIL/MM3 Hemoglobin 16.1 GM/DL Hematocrit 45.8 % Mean Corpuscular Volume 85.6 FL Mean Corpuscular Hemoglobin 30.0 PG Mean Corpuscular Hemoglobin Concent 35.1 % Red Cell Distribution Width 13.0 % Platelet Count 338 TH/MM3 Mean Platelet Volume 7.6 FL Neutrophils (%) (Auto) 87.1 % Lymphocytes (%) (Auto) 5.5 % Monocytes (%) (Auto) 5.8 % Eosinophils (%) (Auto) 0.2 % Basophils (%) (Auto) 1.4 % Neutrophils # (Auto) 8.1 TH/MM3 Lymphocytes # (Auto) 0.5 TH/MM3 Monocytes # (Auto) 0.5 TH/MM3 Eosinophils # (Auto) 0.0 TH/MM3 Basophils # (Auto) 0.1 TH/MM3 CBC Comment AUTO DIFF Differential Comment AUTO DIFF CONFIRMED Prothrombin Time 10.7 SEC Prothromb Time International Ratio 1.1 RATIO Activated Partial Thromboplast Time 23.2 SEC Blood Urea Nitrogen 12 MG/DL Creatinine 1.15 MG/DL Random Glucose 161 MG/DL Total Protein 8.2 GM/DL Albumin 4.6 GM/DL Calcium Level 9.4 MG/DL Alkaline Phosphatase 107 U/L Aspartate Amino Transf (AST/SGOT) 573 U/L Alanine Aminotransferase (ALT/SGPT) 430 U/L Total Bilirubin 2.8 MG/DL Sodium Level 140 MEQ/L Potassium Level 3.4 MEQ/L Chloride Level 101 MEQ/L Carbon Dioxide Level 29.1 MEQ/L Anion Gap 10 MEQ/L Estimat Glomerular Filtration Rate 71 ML/MIN Lactate Dehydrogenase 627 U/L Lipase 1062 U/L Physical Examination HEENT: PERRL; normocephalic; atraumatic; no jaundice. CHEST: CTA CARDIAC: RRR ABDOMEN: Soft, nondistended; epigastric TTP; no hepatosplenomegaly; bowel sounds are present in all four quadrants. EXTREMITIES: No clubbing, cyanosis, or edema. SKIN: Normal; no rash; no jaundice. DISPENSING AND MEASURING OPTICIAN: No focal deficits; alert and oriented times three. (Lolly Dickens) Assessment and Plan Plan ASSESSMENT - abd pain, elevated LFTs, elevated lipase - gallbladder disease vs CBD obstruction tbil 2.8, AST 573, ALT 430, ALP 107. CT suggestive acute cholecystitis. lipase 1062, could be from vomiting, pancreas normal on CT. GS consult lpendign. PLAN - MRCP - NPO - await GS eval - further recs to follow pt seen by myself and DR Cancino and this note is on his behalf (Lolly Dickens) Physician Comments Seen and examined, plan as above, will check MRCP results. Further recommendations to follow. (Mabel Cancino MD) Lolly Dickens Feb 02, 2018 14:15 Mabel Cancino MD Feb 02, 2018 14:51
--- NOTE | 2018-02-02 15:41 | RADRPT ---
EXAM DATE/TIME: 02/02/2018 13:51 [facility] COMPARISON: No previous studies available for comparison. INDICATIONS : Abdominal pain. MEDICAL HISTORY : Hypertension. SURGICAL HISTORY : Gastric bypass. ENCOUNTER: Subsequent ACUITY: 2 day PAIN SCORE: 3/10 LOCATION: upper quadrant abdomen TECHNIQUE: Multiplanar, multisequence magnetic resonance imaging of the abdomen was performed. High-resolution 3D dataset was utilized to reconstruct maximum-intensity projection (MIP) images. FINDINGS: There are numerous gallstones within the gallbladder. There is mild gallbladder wall thickening and p ericholecystic edema which can be associated with cholecystitis. No definite evidence for choledochol ithiasis. Bile duct is mildly dilated at 8 mm. No significant abnormality in the visualized liver, spleen, adrenals, kidneys or pancreas. Small hiat al hernia. CONCLUSION: 1. Numerous gallstones with mild gallbladder wall thickening and a small amount pericholecystic fluid and edema. Differential diagnosis includes a mild cholecystitis. Mildly ductal dilatation but withou t definite evidence for choledocholithiasis. Vijay Da Silva MD on February 02, 2018 at 15:33 Board Certified Radiologist. This report was verified electronically.
--- NOTE | 2018-02-02 15:57 | PD.CONS ---
cc: Kingston Ugarte MD [facility] Service General Surgery Consult Requested By Dr. Costa Reason for Consult Gallstone pancreatitis Primary Care Physician Unknown History of Present Illness This is a 37 year old male with a past medical history of testicular cancer, legally blind, hypertension and depression. The patient came to the ED last night for chest pain. He was worked up with EKG, chest XR and troponin all which were negative. He was discharged home. The patient came back to the ED again this morning for evaluation again. He reports epigastric pain and chills. Denies nausea or vomiting. A CT abd/pelvis was obtained and showed a mildly distended, thick wall gallbladder with pericholecystic fluid. His WBC is normal. His liver enzymes are abnormal: Tbili 2.8; AST 573; ALT 430; Alk phs 107. His lipase is 1062. GI has evaluated the patient. A General Surgery consultation has been requested. Review of Systems Constitutional: COMPLAINS OF: Chills, DENIES: Fatigue, Change in appetite Endocrine: DENIES: Polydipsia, Polyuria, Polyphagia Eyes: DENIES: Diplopia, Eye inflammation Ears, nose, mouth, throat: DENIES: Hearing loss, Vertigo Respiratory: DENIES: Apneas, Cough Gastrointestinal: COMPLAINS OF: Abdominal pain, DENIES: Nausea, Vomiting Genitourinary: DENIES: Urgency Musculoskeletal: DENIES: Joint pain Integumentary: DENIES: Abnormal pigmentation Hematologic/lymphatic: DENIES: Bruising Immunologic/allergic: DENIES: Eczema Neurologic: DENIES: Abnormal gait, Headache Psychiatric: DENIES: Confusion, Mood changes Past Family Social History Past Medical History Hypertension Testicular cancer s/p 1 treatment of chemotherapy Depression Legally blind Past Surgical History Gastric sleeve in 2016 in [place] Testicle removed Reported Medications Escitalopram Zolpidem Allergies: Coded Allergies: No Known Allergies (Verified Allergy, Unknown, 02/01/18) Active Ordered Medications Current Medications Medications (Trade) Dose Ordered Sig/Marcelo Route Start Time Stop Time Status Last Admin (NS Flush) 2 ml UNSCH PRN IV FLUSH 02/02/18 08:15 (Narcan Inj) 0.4 mg UNSCH PRN IV PUSH 02/02/18 11:00 (Renita-Colace) 1 tab BID PO 02/02/18 21:00 (Milk Of Magnesia Liq) 30 ml Q12H PRN PO 02/02/18 11:00 (Senokot) 17.2 mg Q12H PRN PO 02/02/18 11:00 (Dulcolax Supp) 10 mg DAILY PRN RECTAL 02/02/18 11:00 (Lactulose Liq) 30 ml DAILY PRN PO 02/02/18 11:00 (Zofran Inj) 4 mg Q6HR PRN IV PUSH 02/02/18 11:45 (Tylenol) 650 mg Q6H PRN PO 02/02/18 11:45 (Dilaudid Pf Inj) 0.5 mg Q3H PRN IV PUSH 02/02/18 12:30 02/02/18 13:29 (Dilaudid Pf Inj) 1 mg Q3H PRN IV PUSH 02/02/18 12:30 Potassium Chloride 20 meq/ Lactated Ringer's 1,010 ml @ 250 mls/hr Q4H3M IV 02/02/18 13:00 02/02/18 13:29 Ceftriaxone Sodium 1000 mg/ Sodium Chloride 100 ml @ 200 mls/hr Q24H IV 02/02/18 16:00 (Lexapro) 20 mg DAILY PO 02/03/18 09:00 Family History Noncontributory Social History Denies tobacco use + ETOH use--- socially; not daily Denies illicit drug use Lives at the [facility]; is currently in school lives in [facility]; they have three children Physical Exam Vital Signs Vital Signs Date Time Temp Pulse Resp B/P (MAP) Pulse Ox O2 Delivery O2 Flow Rate FiO2 02/02/18 10:56 81 20 144/97 (113) 97 Room Air 02/02/18 09:06 74 18 155/88 (110) 99 Room Air 02/02/18 08:19 61 195/98 (130) 02/02/18 07:31 98.4 69 22 195/117 (143) 100 Physical Exam GENERAL: 37 year old male resting in bed in no acute distress SKIN: Warm and dry. Several tattoos on chest and BUE. HEAD: Atraumatic. Normocephalic. EYES: Pupils equal and round. No scleral icterus. No injection or drainage. ENT: No nasal bleeding or discharge. Mucous membranes pink and moist. NECK: Trachea midline. CARDIOVASCULAR: Regular rate and rhythm. RESPIRATORY: No accessory muscle use. Clear to auscultation. Breath sounds equal bilaterally. GASTROINTESTINAL: Abdomen soft, non distended; obese abdomen; RUQ and epigastric tenderness with palpation; faint well healed laparoscopic scars. MUSCULOSKELETAL: Extremities without clubbing, cyanosis, or edema. No obvious deformities. NEUROLOGICAL: Awake and alert. No obvious cranial nerve deficits. Motor grossly within normal limits. Five out of 5 muscle strength in the arms and legs. Normal speech. PSYCHIATRIC: Appropriate mood and affect; insight and judgment normal. Laboratory Laboratory Tests Test 02/02/18 08:25 White Blood Count 9.3 Red Blood Count 5.35 Hemoglobin 16.1 Hematocrit 45.8 Mean Corpuscular Volume 85.6 Mean Corpuscular Hemoglobin 30.0 Mean Corpuscular Hemoglobin Concent 35.1 Red Cell Distribution Width 13.0 Platelet Count 338 Mean Platelet Volume 7.6 Neutrophils (%) (Auto) 87.1 Lymphocytes (%) (Auto) 5.5 Monocytes (%) (Auto) 5.8 Eosinophils (%) (Auto) 0.2 Basophils (%) (Auto) 1.4 Neutrophils # (Auto) 8.1 Lymphocytes # (Auto) 0.5 Monocytes # (Auto) 0.5 Eosinophils # (Auto) 0.0 Basophils # (Auto) 0.1 CBC Comment AUTO DIFF Differential Comment AUTO DIFF CONFIRMED Prothrombin Time 10.7 Prothromb Time International Ratio 1.1 Activated Partial Thromboplast Time 23.2 Blood Urea Nitrogen 12 Creatinine 1.15 Random Glucose 161 Total Protein 8.2 Albumin 4.6 Calcium Level 9.4 Alkaline Phosphatase 107 Aspartate Amino Transf (AST/SGOT) 573 Alanine Aminotransferase (ALT/SGPT) 430 Total Bilirubin 2.8 Sodium Level 140 Potassium Level 3.4 Chloride Level 101 Carbon Dioxide Level 29.1 Anion Gap 10 Estimat Glomerular Filtration Rate 71 Lactate Dehydrogenase 627 Lipase 1062 Result Diagram: 02/02/1882402/02/18824 Imaging Last 48 hours Impressions Abdomen/Pelvis CT 02/02/18809 Signed Impressions: Service Date/Time: Friday, February 02, 2018 08:55 - CONCLUSION: 1. Mildly distended, thick-walled gallbladder with minimal pericholecystic fluid suggesting acute cholecystitis. Clinical correlation is recommended. 2. Mild degenerative changes and scoliosis of the thoracolumbar spine. Johnnie Bowden MD Assessment and Plan Assessment and Plan 37 year old male with abdominal pain; acute cholecystitis -Continue to monitor liver enzymes -MRCP---follow up on results -Can plan for laparoscopic cholecystectomy tomorrow if no CBD stone -Obtain consents -Clear liquids okay tonight; NPO after MN -Thank you for this consult; We will continue to follow Discussed Condition With Dr. Ugarte Mr. and Vidya BillyP/Telegraph Installer PATROL INSPECTOR Feb 02, 2018 15:57 Kingston Ugarte MD Feb 02, 2018 18:43
[2018-02-02] MEDS ORDERED: cefTRIAXone INJ 1,000 MG in SODIUM CHLORIDE 0.9% INJ 100 ML IV SCH (16:00)
[2018-02-02 16:27] VITALS: BP 161/103; PULSE 72; RESP 20; TEMP 99; O2SAT 93
[2018-02-02 19:48] LABS: BILIRUBIN, URINE SMALL (NEG); BLOOD, URINE NEG (NEG); GLUCOSE,URINE NEG (NEG); KETONE, URINE 10 mg/dL (NEG); MUCUS URINE FEW /lpf (OCC); NITRITE,URINE NEG (NEG); PH, URINE 5.5 (5.0-8.5); SQUAMOUS EPITHELIAL CELL URINE <1 /hpf (0-5); URINE COLOR DARK-YELLOW (YELLW/STRAW); URINE LEUKOCYTE ESTERASE NEG (NEG)
[2018-02-02] MEDS: DOCUSATE SODIUM 50 MG/SENNA 8.6 MG TAB PO SCH (20:27)
[2018-02-02 21:57] VITALS: BP 146/89; PULSE 69; RESP 17; TEMP 98.5; O2SAT 94
[2018-02-03] VITALS (8 sets, daily range): BP systolic 136–161; BP diastolic 80–98; PULSE 63–99; RESP 17–20; TEMP 98–99.3; O2SAT 94–96
[2018-02-03] MEDS: POTASSIUM CHLORIDE INJ 20 MEQ in LACTATED RINGER'S 1000 ML INJ 1,000 ML IV SCH ×3 (01:22→08:03)
[2018-02-03] MEDS: HYDROmorphone HCL PF 2 MG/ML VIAL IV PUSH PRN ×4 (02:25→19:56)
[2018-02-03] MEDS ORDERED: ACETAMINOPHEN 1000 MG/100 ML 100 ML IV ONE (07:25)
[2018-02-03] MEDS ORDERED: POVIDONE IODINE 5% (ANTISEPSIS KIT) 4 APPLICATIONS EACH NARE PRN (07:30)
[2018-02-03] MEDS ORDERED: METOPROLOL TARTRATE 25 MG TAB PO PRN (07:30)
[2018-02-03] MEDS ORDERED: SODIUM CHLORID 0.9% 500 ML IV PRN (07:30)
[2018-02-03] MEDS ORDERED: CHLORHEXIDINE GLUCONATE 2 % 1 PACK (2 CLOTHS) TOPICAL PRN (07:30)
[2018-02-03] MEDS ORDERED: LACTATED RINGER'S 1000 ML IV PRN (07:30)
[2018-02-03] MEDS: DOCUSATE SODIUM 50 MG/SENNA 8.6 MG TAB PO SCH ×2 (08:03→19:56)
[2018-02-03] MEDS: BUPIVACAINE/EPINEPHRINE 0.25% 50 ML VIAL ONE (08:17)
--- NOTE | 2018-02-03 09:45 | HHI.PR ---
cc: Kingston Ugarte MD Immediate Post Op Note Procedure Date: Feb 03, 2018 Pre Op Diagnosis: Acute cholecystitis Post Op Diagnosis: Same Surgeon: Kingston Ugarte Placer Miner(s): Tamika Alvarez CFA Procedure: Laparoscopic cholecystectomy Findings: Severe acute cholecystitis Complications: None Specimen(s) removed: Gallbladder and contents to pathology Estimated blood loss: 50 ml Anesthesia: General Drains: None IVF (1700 ml) Patient to: PACU Patient Condition: Good Date/Time of Procedure: SEE SURGICAL CARE RECORD Kingston Ugarte MD Feb 03, 2018 09:45
[2018-02-03] MEDS ORDERED: DO NOT ADM ANY ANTICOAGULANT DRUGS PRN (09:48)
[2018-02-03] MEDS ORDERED: HYDR-3288 PO (09:52)
[2018-02-03] MEDS ORDERED: MIDAZOLAM HCL 2 MG/2 ML VIAL ONE (09:57)
[2018-02-03] MEDS ORDERED: ACETAMINOPHEN/HYDROcodone 325 MG/7.5 MG TAB PO PRN (10:00)
[2018-02-03] MEDS ORDERED: PNEUMOCOCCAL POLYVALENT INJ 25 MCG/0.5 ML SYR IM ONE (10:00)
[2018-02-03] MEDS ORDERED: INFLUENZA VIRUS VACCINE (QUADRIVALENT) 0.5 ML SYR IM ONE (10:00)
[2018-02-03] MEDS ORDERED: *morphine SULFATE 10 MG/ML PERIprocedure ONLY ONE (10:05)
--- NOTE | 2018-02-03 10:14 | MP ---
cc: Kingston Ugarte MD DATE OF OPERATION: 02/03/2018 DATE OF PROCEDURE: 02/03/2018. PROCEDURE: Laparoscopic cholecystectomy. PREOPERATIVE DIAGNOSIS: Acute cholecystitis. POSTOPERATIVE DIAGNOSIS: Acute cholecystitis. ANESTHESIA: General endotracheal. SURGEON: MD Torito ESTIMATED BLOOD LOSS: 50 mL FLUIDS: 1700 mL crystalloid. COMPLICATIONS: None. DRAINS: None. SPECIMENS: Gallbladder and contents to pathology. FINDINGS: Extremely severe acute cholecystitis with a short cystic duct. PROCEDURE IN DETAIL: The patient was taken to the operating room, and placed on the operating table in the supine position. After an adequate level of general endotracheal anesthesia was achieved, the abdomen was shaved, prepped and draped. Timeout was taken confirming the correct patient, site, and procedure to be performed. Skin and subcutaneous tissue was infiltrated with local anesthetic and an incision made in the umbilicus and carried through the fascia sharply. The peritoneal cavity was directly visualized. A 12 mm balloon trocar was inserted and the balloon inflated. The abdomen was insufflated and the patient placed in reverse Trendelenburg position. Three 5 mm trocars were placed in the upper abdomen with the first to the right of the falciform ligament and second and third in the right subcostal region. All entered the abdominal cavity under direct vision uneventfully. The fundus of the gallbladder was grasped and retracted upward. Adhesions were taken down off of the gallbladder with gentle blunt dissection. The gallbladder was entered at one point and all bile was aspirated with a suction rubber tubing backer. Severe acute inflammatory process was present around the gallbladder and dissection was carried down around the infundibulum. The cystic duct appeared to be relatively short and there was significant concern that attempting to dissect this in a retrograde fashion would risk injury to the common duct. The cystic artery was first circumferentially dissected, doubly clipped proximally, singly clipped on the gallbladder side and divided. The gallbladder was then dissected in a dome down fashion and dissection was carried out carefully with recognition of the important structures and with all dissection staying away from the common duct and the cystic duct itself. As dissection was carried down around the gallbladder and the cystic duct was further exposed, it was still fairly short and dilated. Thus, it was elected to skip any cholangiogram and a 0 PDS Endoloop was placed over the gallbladder and cinched down at the cystic duct near the cystic duct-infundibular junction. The gallbladder was then sharply incised off of the cystic duct stump and the gallbladder placed into an Endo Catch device. This was removed via the umbilical port while observing via the upper 5 mm trocar site. The specimen was passed off the table. The upper abdomen was revisualized and the liver bed, cystic artery stump, and cystic duct stump were all seen to be clean and dry. All irrigation was aspirated from the abdominal cavity. With hemostasis assured insufflation was discontinued. All trocars were removed under direct vision. No bleeding was noted from the trocar site after removal. The laparoscope and umbilical port were removed. The fascia was closed in the umbilicus with 0 Vicryl suture in an interrupted fashion. The skin was closed in all 4 sites with 4-0 Vicryl in an interrupted buried fashion as well. All sites were dressed with Steri-Strips. The patient was extubated and taken back to the recovery room in stable condition. He tolerated the procedure well. MD HANDY Wray/SB , 09:58 AM , 10:13 AM
[2018-02-03] MEDS: ESCITALOPRAM OXALATE 20 MG TAB PO SCH (10:47)
[2018-02-03] MEDS: ACETAMINOPHEN/HYDROcodone 325 MG/7.5 MG TAB PO PRN ×4 (10:47→23:41)
[2018-02-03] MEDS ORDERED: NEOSTIGMINE 5 MG/5 ML SYRINGE IV PUSH ONE (12:00)
[2018-02-03] MEDS ORDERED: KETOROLAC TROMETHAMINE 30 MG/ML (IVP) VIAL IV PUSH ONE (12:00)
[2018-02-03] MEDS ORDERED: DEXAMETHASONE SOD PHOS 4 MG/ML VIAL IV ONE (12:00)
[2018-02-03] MEDS ORDERED: STERILE WATER FOR INJECTION 20 ML VIAL IV ONE (12:00)
[2018-02-03] MEDS ORDERED: LACTATED RINGER'S 1000 ML INJ 2,000 ML IV ONE (12:00)
[2018-02-03] MEDS ORDERED: GLYCOPYRROLATE 1 MG/5 ML SYRINGE IV PUSH ONE (12:00)
[2018-02-03] MEDS ORDERED: ROCURONIUM INJ 50 MG/5 ML SYRINGE IV PUSH ONE (12:00)
[2018-02-03] MEDS ORDERED: LIDOCAINE HCL 1% PF 5 ML SYRINGE OTHER ONE (12:00)
[2018-02-03] MEDS ORDERED: PHENYLEPH/NS 1000 MCG/10 ML SYR IV ONE (12:00)
[2018-02-03] MEDS ORDERED: VECURONIUM BROMIDE 20 MG VIAL IV ONE (12:00)
[2018-02-03] MEDS ORDERED: PROPOFOL 200 MG/20 ML AMP IV ONE (12:00)
[2018-02-03] MEDS ORDERED: ONDANSETRON HCL 4 MG/2 ML VIAL IV ONE (12:00)
--- NOTE | 2018-02-03 13:12 | HHI.FPPN ---
Subjective Remarks No acute events overnight. Vital signs unremarkable. This morning patient has already gone back for his laparoscopic cholecystectomy. Endorses nausea and abdominal pain but denies chest pain. Endorses some SOB only when taking a deep breath. Does want to try to eat. Denies flatus or bowel movement at this time. (Diamond Newton MD, R3) Objective Vitals Vital Signs Date Time Temp Pulse Resp B/P (MAP) Pulse Ox O2 Delivery O2 Flow Rate FiO2 02/03/18 12:27 98.6 93 18 154/89 (110) 94 02/03/18 11:41 98.7 98 20 161/97 (118) 94 02/03/18 10:16 97.9 92 20 108/50 (69) 95 Nasal Cannula 2 02/03/18 10:00 97.9 93 20 135/61 (85) 95 Nasal Cannula 2 02/03/18 09:45 97.9 111 20 138/67 (90) 95 Nasal Cannula 2 02/03/18 07:53 98.0 63 19 136/82 (100) 96 02/03/18 06:28 18 02/03/18 05:00 98.1 67 17 148/94 (112) 95 02/03/18 00:49 99.3 68 17 137/80 (99) 95 02/02/18 21:57 98.5 69 17 146/89 (108) 94 02/02/18 17:30 18 02/02/18 16:27 99.0 72 20 161/103 (122) 93 I/O 02/02/18 02/02/18 02/02/18 02/03/18 02/03/18 02/03/18 07:00 15:00 23:00 07:00 15:00 23:00 Intake Total 1000 ml 654 ml 1600 ml 1700 ml Output Total 800 ml 50 ml Balance 1000 ml 654 ml 800 ml 1650 ml Intake IV Total 1000 ml 654 ml 1600 ml 1700 ml Output Urine Total 800 ml Estimated Blood Loss 50 ml (Diamond Newton MD, R3) Result Diagram: 02/02/18 0825 02/02/18 0825 Imaging Last Impressions Abdomen/Pelvis CT 02/02/18 0810 Signed Impressions: Service Date/Time: Friday, February 02, 2018 08:55 - CONCLUSION: 1. Mildly distended, thick-walled gallbladder with minimal pericholecystic fluid suggesting acute cholecystitis. Clinical correlation is recommended. 2. Mild degenerative changes and scoliosis of the thoracolumbar spine. Johnnie Bowden MD Cholangiopancreatography MRI 02/02/18 0000 Signed Impressions: Service Date/Time: Friday, February 02, 2018 13:51 - CONCLUSION: 1. Numerous gallstones with mild gallbladder wall thickening and a small amount pericholecystic fluid and edema. Differential diagnosis includes a mild cholecystitis. Mildly ductal dilatation but without definite evidence for choledocholithiasis. Vijay Da Silva MD Objective Remarks GEN: Well-developed, well-nourished patient. No acute distress. Resting comfortably in bed. CV: Regular rate and rhythm without obvious murmurs LUNGS: Clear to auscultation bilaterally. Normal respiratory effort. No wheezes , rales, rhonchi. GI: Soft, nondistended. Bowel sounds present. EXT: No edema. No calf tenderness. NEURO/PSYCH: Awake, alert. Appropriate insight and judgment. Normal speech (Diamond Newton MD, R3) A/P Assessment and Plan 37-year-old male admitted with cholecystitis and pancreatitis, suspect gallstone pancreatitis. Discharge Planning Tomorrow pending pain control and tolerating diet sdw Dr. King and Dr. Gipson (Diamond Newton MD, R3) Attending Attestation Patient was seen, examined and discussed with the medicine team. His is present in the room with him. He had laparoscopic cholecystectomy this morning, and has yet to eat. Surgery has ordered clear liquid diet and labs for the morning. He has been Transition to PO medications in anticipation of his discharge perhaps tomorrow. He has some discomfort, but it is tolerable. Exam findings are as documented above.I agree with plan. (Yohana King MD) Problem List: (1) Acute gallstone pancreatitis ICD Codes: K85.10 - Biliary acute pancreatitis without necrosis or infection Status: Acute Plan: Suspected acute gallstone pancreatitis due to elevated lipase and liver enzymes. No leukocytosis on admission. CT abdomen 02/02: gallbladder wall thickness suggestive of cholecystitis. Did not meet criteria for severe pancreatitis on admission. -Rocephin x1 while awaiting surgical intervention -discontinued aggressive fluid hydration as patient endorses a desire to eat and drink General surgery consulted: appreciate recommendations * Laparoscopic cholecystectomy 02/03 Gastroenterology consulted: appreciate recommendations * MRCP: Numerous gallstones with mild gallbladder wall thickening. Mildly ductal dilation but without definite evidence for choledocholithiasis Medications: * Sigel for pain control * Dilaudid for breakthrough (2) Depression, major ICD Codes: F32.9 - Major depressive disorder, single episode, unspecified Status: Chronic Plan: Continue Escitalopram 20mg daily. Not currently symptomatic. 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 Acuity reportedly 20/400 to 20/ 800. Activity OOB with assistance Other assistance to be offered as needed (4) Fluids/Electrolytes/Nutrition/Prophylaxis/PRNs Status: Acute Plan: Fluids: PO hydration Electrolytes: Monitor and replete PRN Diet: Clear Prophylaxis: SCDs as patient is post op PRNs: Vasotec 1.25mg q6hr PRN SBP >180, DBP > 100 (Diamond Newton MD, R3) Problem Qualifiers (1) Depression, major: Qualified Codes: F32.1 - Major depressive disorder, single episode, moderate Diamond Newton MD, R3 Feb 03, 2018 13:12 Yohana King MD Feb 03, 2018 14:43
--- NOTE | 2018-02-03 13:34 | HHI.GIFU ---
Subjective Remarks Resting in the bed at his side No nausea no vomiting tolerate and clear liquids Back to the room postop one hour since surgical procedure, Objective Vitals I&O Vital Signs Date Time Temp Pulse Resp B/P (MAP) Pulse Ox O2 Delivery O2 Flow Rate FiO2 02/03/18 12:27 98.6 93 18 154/89 (110) 94 02/03/18 11:41 98.7 98 20 161/97 (118) 94 02/03/18 10:16 97.9 92 20 108/50 (69) 95 Nasal Cannula 2 02/03/18 10:00 97.9 93 20 135/61 (85) 95 Nasal Cannula 2 02/03/18 09:45 97.9 111 20 138/67 (90) 95 Nasal Cannula 2 02/03/18 07:53 98.0 63 19 136/82 (100) 96 02/03/18 06:28 18 02/03/18 05:00 98.1 67 17 148/94 (112) 95 02/03/18 00:49 99.3 68 17 137/80 (99) 95 02/02/18 21:57 98.5 69 17 146/89 (108) 94 02/02/18 17:30 18 02/02/18 16:27 99.0 72 20 161/103 (122) 93 I/O 02/02/18 02/02/18 02/02/18 02/03/18 02/03/18 02/03/18 07:00 15:00 23:00 07:00 15:00 23:00 Intake Total 1000 ml 654 ml 1600 ml 1700 ml Output Total 800 ml 50 ml Balance 1000 ml 654 ml 800 ml 1650 ml Intake IV Total 1000 ml 654 ml 1600 ml 1700 ml Output Urine Total 800 ml Estimated Blood Loss 50 ml Laboratory Laboratory Tests Test 02/02/18 19:33 Urine Color DARK-YELLOW Urine Turbidity CLEAR Urine pH 5.5 Urine Specific [place] 1.035 Urine Protein TRACE Urine Glucose (UA) NEG Urine Ketones 10 Urine Occult Blood NEG Urine Nitrite NEG Urine Bilirubin SMALL Urine Urobilinogen 4.0 Urine Leukocyte Esterase NEG Urine WBC 4 Urine Squamous Epithelial Cells <1 Urine Mucus FEW Microscopic Urinalysis Comment CULT NOT INDICATED Imaging Last Impressions Abdomen/Pelvis CT 02/02/18 0810 Signed Impressions: Service Date/Time: Friday, February 02, 2018 08:55 - CONCLUSION: 1. Mildly distended, thick-walled gallbladder with minimal pericholecystic fluid suggesting acute cholecystitis. Clinical correlation is recommended. 2. Mild degenerative changes and scoliosis of the thoracolumbar spine. Johnnie Bowden MD Cholangiopancreatography MRI 02/02/18 0000 Signed Impressions: Service Date/Time: Friday, February 02, 2018 13:51 - CONCLUSION: 1. Numerous gallstones with mild gallbladder wall thickening and a small amount pericholecystic fluid and edema. Differential diagnosis includes a mild cholecystitis. Mildly ductal dilatation but without definite evidence for choledocholithiasis. Vijay Da Silva MD Physical Exam HEENT: Pupils round and reactive to light; normocephalic; atraumatic; no jaundice. Mild obese NECK: Neck is supple, CHEST: Chest is clear no audible rhonchi CARDIAC: Regular rate and rhythm ABDOMEN: Round, Soft, tympanic, and I'll tenderness at surgical sites, atherosclerotic; no hepatosplenomegaly; bowel sounds are present in all four quadrants. EXTREMITIES: No clubbing, cyanosis, or edema. SKIN: Normal; no rash; no jaundice. EDGE STRIPPER: Awake ,oriented times three. Assessment and Plan Plan ASSESSMENT - abd pain, elevated LFTs, elevated lipase - gallbladder disease vs CBD obstruction tbil 2.8, AST 573, ALT 430, ALP 107. CT suggestive acute cholecystitis. lipase 1062, could be from vomiting, pancreas normal on CT. GS consult pending 02/03/18, appreciate Gen. surgery input patient is postop laparoscopic cholecystectomy . Extremely severe acute cholecystitis with a short cystic duct. Mild abdominal tenderness with some tympany but starting to pass gas. Coverage patient to increase his activity and move around in the bed PLAN - further recs to follow - Diet clear liquids for now, per GS - Monitor bowel regimen - GI will sign off, reconsult is needed, monitor labs pt seen by myself and DR Cancino and this note is on his behalf Yohana Lui Feb 03, 2018 13:34
--- NOTE | 2018-02-03 17:50 | EKG ---
Date Performed: 02/02/2018 Time Performed: 08:38:55 PTAGE: 37 years EKG: Sinus rhythm BORDERLINE INCREASED VOLTAGE WITHIN NORMALN LIMITS NORMAL ECG Since PREVIOUS TRACING , no significant change noted PREVIOUS TRACIN02/01/2018 21.41 DOCTOR: Adonay Lamas Interpretating Date/Time 02/03/2018 17:48:56
[2018-02-04 01:02] VITALS: BP 162/97; PULSE 79; RESP 20; TEMP 98.9; O2SAT 95
[2018-02-04] MEDS: HYDROmorphone HCL PF 2 MG/ML VIAL IV PUSH PRN ×2 (01:03→07:14)
[2018-02-04] MEDS: ACETAMINOPHEN/HYDROcodone 325 MG/7.5 MG TAB PO PRN ×3 (05:37→13:34)
[2018-02-04 06:31] VITALS: BP 161/101; PULSE 89; RESP 20; TEMP 97.8; O2SAT 96
[2018-02-04 07:24] VITALS: BP 137/86; PULSE 71; RESP 20; TEMP 98.2; O2SAT 96
[2018-02-04 07:30] LABS: AUTOMATED NEUTROPHIL # 7.9 TH/MM3 (1.8-7.7); BASOPHIL % 0.2 % (0.0-2.0); EOSINOPHIL % 0.1 % (0.0-4.0); HEMOGLOBIN 13.5 GM/DL (13.0-17.0); LYMPH % 9.9 % (9.0-44.0); LYMPHOCYTE # 0.9 TH/MM3 (1.0-4.8); MEAN CELL VOLUME 87.5 FL (80.0-100.0); MEAN CORPUSCULAR HEMOGLOBIN 29.4 PG (27.0-34.0); MEAN CORPUSCULAR HGB CONC 33.6 % (32.0-36.0); MEAN PLATELET VOLUME 7.5 FL (7.0-11.0); MONO % 7.4 % (0.0-8.0); MONOCYTE # 0.7 TH/MM3 (0-0.9); NEUT % 82.4 % (16.0-70.0); PLATELET COUNT 276 TH/MM3 (150-450); RED BLOOD COUNT 4.57 MIL/MM3 (4.50-5.90); RED CELL DISTRIBUTION WIDTH 13.3 % (11.6-17.2); WHITE BLOOD COUNT 9.6 TH/MM3 (4.0-11.0)
[2018-02-04 07:36] LABS: ALBUMIN 3.2 GM/DL (3.4-5.0); ALKALINE PHOSPHATASE 112 U/L (45-117); ALT (GPT) 395 U/L (12-78); AST (GOT) 167 U/L (15-37); BICARBONATE 32.3 MEQ/L (21.0-32.0); BLOOD UREA NITROGEN 9 MG/DL (7-18); CALCIUM 8.5 MG/DL (8.5-10.1); CHLORIDE 102 MEQ/L (98-107); CHOLESTEROL 159 MG/DL (120-200); CHOLESTEROL/ HDL RATIO 2.75 RATIO; CREATININE 0.85 MG/DL (0.60-1.30); DIRECT BILIRUBIN ADULT 0.6 MG/DL (0.0-0.2); GLOMERULAR FILTRATION RATE 100 ML/MIN (>89); GLUCOSE,RANDOM 95 MG/DL (74-106); HDL CHOLESTEROL 57.8 MG/DL (40.0-60.0); LDL CHOLESTEROL 86 MG/DL (0-99); SODIUM (NA) 141 MEQ/L (136-145); TOTAL BILIRUBIN ADULT 1.3 MG/DL (0.2-1.0); TOTAL PROTEIN 6.3 GM/DL (6.4-8.2); TRIGLYCERIDES 76 MG/DL (42-150)
[2018-02-04] MEDS: DOCUSATE SODIUM 50 MG/SENNA 8.6 MG TAB PO SCH (09:08)
[2018-02-04] MEDS: ESCITALOPRAM OXALATE 20 MG TAB PO SCH (09:08)
--- NOTE | 2018-02-04 09:44 | HHI.FPPN ---
Subjective Remarks Patient was seen and examined this morning. Today's POD #1 after laparoscopic cholecystectomy. Operative note reviewed and notable for minimal blood loss, acute severe cholecystitis noted as postoperative diagnosis. He is also noted an operative note to have short cystic duct. Patient states his abdominal pain is approximately 3/10 in severity and well- controlled with [place] and he is eager to go home today. No nausea, vomiting, fevers, chills. Tolerating clear liquids. No bowel movement yet but is passing flatus. Ambulated around the floor without difficulty yesterday. He will be discharged back to his dormitory at the [facility] on [facility] upon discharge. His PCP is in [facility] but he notes that he would like records sent there. Objective Vitals Vital Signs Date Time Temp Pulse Resp B/P (MAP) Pulse Ox O2 Delivery O2 Flow Rate FiO2 02/04/18 07:24 98.2 71 20 137/86 (103) 96 02/04/18 06:31 97.8 89 20 161/101 (121) 96 02/04/18 01:02 98.9 79 20 162/97 (118) 95 02/03/18 20:00 98.1 90 20 159/92 (114) 95 02/03/18 16:36 98.5 90 18 151/98 (115) 94 02/03/18 15:27 98.2 99 20 155/93 (113) 95 02/03/18 12:27 98.6 93 18 154/89 (110) 94 02/03/18 11:41 98.7 98 20 161/97 (118) 94 02/03/18 10:16 97.9 92 20 108/50 (69) 95 Nasal Cannula 2 02/03/18 10:00 97.9 93 20 135/61 (85) 95 Nasal Cannula 2 02/03/18 09:45 97.9 111 20 138/67 (90) 95 Nasal Cannula 2 I/O 02/03/18 02/03/18 02/03/18 02/04/18 02/04/18 02/04/18 07:00 15:00 23:00 07:00 15:00 23:00 Intake Total 1600 ml 1700 ml 720 ml 240 ml Output Total 800 ml 50 ml 300 ml Balance 800 ml 1650 ml 420 ml 240 ml Intake Oral 720 ml 240 ml IV Total 1600 ml 1700 ml Output Urine Total 800 ml 300 ml Estimated Blood Loss 50 ml # Voids 2 3 Result Diagram: 02/04/18 0605 02/04/18 0605 Imaging Last Impressions Abdomen/Pelvis CT 02/02/18 0810 Signed Impressions: Service Date/Time: Friday, February 02, 2018 08:55 - CONCLUSION: 1. Mildly distended, thick-walled gallbladder with minimal pericholecystic fluid suggesting acute cholecystitis. Clinical correlation is recommended. 2. Mild degenerative changes and scoliosis of the thoracolumbar spine. Johnnie Bowden MD Cholangiopancreatography MRI 02/02/18 0000 Signed Impressions: Service Date/Time: Friday, February 02, 2018 13:51 - CONCLUSION: 1. Numerous gallstones with mild gallbladder wall thickening and a small amount pericholecystic fluid and edema. Differential diagnosis includes a mild cholecystitis. Mildly ductal dilatation but without definite evidence for choledocholithiasis. Vijay Da Silva MD Objective Remarks GEN: Well-developed, well-nourished patient. No acute distress. Resting comfortably in bed. CV: Regular rate and rhythm without obvious murmurs LUNGS: Clear to auscultation bilaterally. Normal respiratory effort. No wheezes , rales, rhonchi. GI: Soft, nondistended. Bowel sounds present. Postsurgical bandages over trocar sites noted without any discharge. EXT: No edema. No calf tenderness. NEURO/PSYCH: Awake, alert. Appropriate insight and judgment. Normal speech. Procedures Laparoscopic cholecystectomy 02/03 Medications and IVs Inpatient Medications Acetaminophen (Tylenol) 650 mg Q6H PRN PO PAIN SCALE 1 TO 2, FEVER >101; Start 02/02/18 at 11:45 Acetaminophen/ Hydrocodone Bitart ([place] 7.5-325 Mg) 2 tab Q4H PRN PO pain 6- 10 Last administered on 02/04/18at 09:52; Start 02/03/18 at 10:00 Bisacodyl (Dulcolax Supp) 10 mg DAILY PRN RECTAL SEVERE CONSITIPATION; Start at 11:00 Ceftriaxone Sodium 1000 mg/ Sodium Chloride 100 ml @ 200 mls/hr Q24H IV Last administered on 02/02/18at 16:58; Start 02/02/18 at 16:00; Stop 02/03/18 at 10:59 ; Status DC Chlorhexidine Gluconate (Chlorhexidine 2% Cloth) 3 pack KINDERGARTNERS HELPER PRN TOPICAL SEE LABEL COMMENTS; Start 02/03/18 at 07:30; Stop 02/06/18 at 07:29 Escitalopram Oxalate (Lexapro) 20 mg DAILY PO Last administered on 02/04/18at 09 :08; Start 02/03/18 at 09:00 Hydromorphone HCl (Dilaudid Pf Inj) 1 mg Q3H PRN IV PUSH Pain 6-10;if unable to take PO Last administered on 02/03/18at 05:58; Start 02/02/18 at 12:30; Stop 02/03/18 at 13:08; Status DC Influenza Virus Vaccine (Flu (Quadrivalent) Vaccine Inj) 0.5 ml ONCE ONCE IM ; Start 02/03/18 at 10:00; Stop 02/03/18 at 10:01; Status DC Lactated Ringer's 1,000 ml @ 30 mls/hr Q24H PRN IV SEE LABEL COMMENTS; Start at 07:30; Stop 02/06/18 at 07:29 Lactulose (Lactulose Liq) 30 ml DAILY PRN PO SEVERE CONSITIPATION; Start at 11:00 Magnesium Hydroxide (Milk Of Magnesia Liq) 30 ml Q12H PRN PO Mild constipation ; Start 02/02/18 at 11:00 Metoprolol Tartrate (Lopressor) 25 mg KINDERGARTNERS HELPER PRN PO SEE LABEL COMMENTS; Start 02/03/18 at 07:30; Stop 02/06/18 at 07:29 Miscellaneous Information ALL NURSING DEPARTME... UNSCH PRN .XX SEE LABEL COMMENTS; Start 02/03/18 at 09:48; Stop 02/04/18 at 09:47; Status DC Naloxone HCl (Narcan Inj) 0.4 mg UNSCH PRN IV PUSH SEE LABEL COMMENTS; Start at 11:45; Stop 02/02/18 at 12:25; Status DC Ondansetron HCl (Zofran Inj) 4 mg Q6HR PRN IV PUSH NAUSEA/VOMITING Last administered on 02/02/18at 16:59; Start 02/02/18 at 11:45 Pneumococcal Polyvalent Vaccine (Pneumovax-23 Inj) 25 mcg ONCE ONCE IM ; Start 02/03/18 at 10:00; Stop 02/03/18 at 10:01; Status DC Potassium Chloride 20 meq/ Lactated Ringer's 1,010 ml @ 250 mls/hr Q4H3M IV Last administered on 02/03/18at 01:22; Start 02/02/18 at 13:00; Stop 02/03/18 at 10:59; Status DC Povidone Iodine (Betadine 5% Antisepsis Kit) 1 applic KINDERGARTNERS HELPER PRN EACH NARE SEE LABEL COMMENTS; Start 02/03/18 at 07:30; Stop 02/06/18 at 07:29 Senna/Docusate Sodium (Renita-Colace) 1 tab BID PO Last administered on at 09:08; Start 02/02/18 at 21:00 Sennosides (Senokot) 17.2 mg Q12H PRN PO Moderate constipation; Start 02/02/18 at 11:00 Sodium Chloride 500 ml @ 30 mls/hr [id number] PRN IV SEE LABEL COMMENTS; Start at 07:30; Stop 02/06/18 at 07:29 Sodium Chloride (NS Flush) 2 ml UNSCH PRN IV FLUSH FLUSH AFTER USING IV ACCESS ; Start 02/02/18 at 08:15 Urinary Catheter: No Vascular Central Line Catheter: No A/P Assessment and Plan 37-year-old male admitted 02/02 with acute cholecystitis and gallstone pancreatitis. He is now postop day #1 from laparoscopic cholecystectomy which was performed by Dr. Ugarte. He had an uncomplicated postoperative course and is ready to go home today. Discharge Planning Pending surgical clearance, patient possibly will be discharged today with [place] pain control and surgical follow-up. Problem List: (1) Acute gallstone pancreatitis ICD Codes: K85.10 - Biliary acute pancreatitis without necrosis or infection Status: Acute Plan: Lipase is normalized today. Liver enzymes are improving. No leukocytosis. Status post laparoscopic cholecystectomy 02/03 Pending surgical clearance, expect discharge 02/04 but possibly 02/05. Patient did receive Dilaudid this morning but he is eager to go home, is fully ambulatory, passing flatus and is tolerating food. Hospital course: Patient was admitted 02/02 with suspicion for acute gallstone pancreatitis. Liver enzymes suspected acute gallstone pancreatitis due to elevated lipase and liver enzymes. No leukocytosis on admission. CT abdomen 02/02: gallbladder wall thickness suggestive of cholecystitis. Did not meet criteria for severe pancreatitis on admission or at 48 hour loki. -Rocephin x1 on 02/02 preoperatively -discontinued aggressive fluid hydration as patient tolerating PO preoperatively and postoperatively General surgery consulted: appreciate management * Laparoscopic cholecystectomy 02/03 Gastroenterology consulted: appreciate recommendations * MRCP: Numerous gallstones with mild gallbladder wall thickening. Mildly ductal dilation but without definite evidence for choledocholithiasis Medications: * [place] 7.5 for pain 1-5, [place] 15 for pain 6-10 * Dilaudid for breakthrough pain, given at approximate 7:30 AM on 02/04 * Patient is taking Renita-Colace 1 tab p.o. twice daily (2) Depression, major ICD Codes: F32.9 - Major depressive disorder, single episode, unspecified Status: Chronic Plan: Chronic, stable, continue Escitalopram 20mg daily. Not currently symptomatic. 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 Acuity reportedly 20/400 to 20/ 800. Activity OOB with assistance Other assistance to be offered as needed (4) Fluids/Electrolytes/Nutrition/Prophylaxis/PRNs Status: Acute Plan: Fluids: PO hydration Electrolytes: Monitor and replete PRN Diet: Clear liquids Prophylaxis: SCDs, patient is fully ambulatory PRNs: Vasotec 1.25mg q6hr PRN SBP >180, DBP > 100 Problem Qualifiers (1) Depression, major: Qualified Codes: F32.1 - Major depressive disorder, single episode, moderate Lilia Costa MD Feb 04, 2018 09:44
--- NOTE | 2018-02-04 10:04 | HHI.DCPOC ---
Discharge Care Plan Diagnosis: (1) Acute gallstone pancreatitis (2) Acute cholecystitis Goals to Promote Your Health * To prevent worsening of your condition and complications * To maintain your health at the optimal level Directions to Meet Your Goals Take your medications as prescribed Follow your dietary instruction Follow activity as directed Keep your appointments as scheduled Take your immunizations and boosters as scheduled If your symptoms worsen call your PCP, if no PCP go to Urgent Care Center or Emergency Room Smoking is Dangerous to Your Health. Avoid second hand smoke Call the 24-hour hour crisis hotline for domestic abuse at Lilia Costa MD Feb 04, 2018 10:04
--- NOTE | 2018-02-04 11:20 | HHI.PR ---
Subjective Subjective Notes +flatus, no bm, no nausea, oob Objective Vitals/I&O Vital Signs Date Time Temp Pulse Resp B/P (MAP) Pulse Ox O2 Delivery O2 Flow Rate FiO2 02/04/18 07:24 98.2 71 20 137/86 (103) 96 02/03/18 10:16 Nasal Cannula 2 Labs Laboratory Tests Test 02/04/18 06:05 White Blood Count 9.6 Red Blood Count 4.57 Hemoglobin 13.5 Hematocrit 40.0 Mean Corpuscular Volume 87.5 Mean Corpuscular Hemoglobin 29.4 Mean Corpuscular Hemoglobin Concent 33.6 Red Cell Distribution Width 13.3 Platelet Count 276 Mean Platelet Volume 7.5 Neutrophils (%) (Auto) 82.4 Lymphocytes (%) (Auto) 9.9 Monocytes (%) (Auto) 7.4 Eosinophils (%) (Auto) 0.1 Basophils (%) (Auto) 0.2 Neutrophils # (Auto) 7.9 Lymphocytes # (Auto) 0.9 Monocytes # (Auto) 0.7 Eosinophils # (Auto) 0.0 Basophils # (Auto) 0.0 CBC Comment DIFF FINAL Differential Comment Blood Urea Nitrogen 9 Creatinine 0.85 Random Glucose 95 Total Protein 6.3 Albumin 3.2 Calcium Level 8.5 Alkaline Phosphatase 112 Aspartate Amino Transf (AST/SGOT) 167 Alanine Aminotransferase (ALT/SGPT) 395 Total Bilirubin 1.3 Direct Bilirubin 0.6 Sodium Level 141 Potassium Level 3.6 Chloride Level 102 Carbon Dioxide Level 32.3 Anion Gap 7 Estimat Glomerular Filtration Rate 100 Triglycerides Level 76 Cholesterol Level 159 LDL Cholesterol 86 HDL Cholesterol 57.8 Cholesterol/HDL Ratio 2.75 Lipase 146 Radiology Last 48 hours Impressions Abdomen/Pelvis CT 02/02/18 0810 Signed Impressions: Service Date/Time: Friday, February 02, 2018 08:55 - CONCLUSION: 1. Mildly distended, thick-walled gallbladder with minimal pericholecystic fluid suggesting acute cholecystitis. Clinical correlation is recommended. 2. Mild degenerative changes and scoliosis of the thoracolumbar spine. Johnnie Bowden MD Abdomen: Other (soft incisional tenderness) A/P Assessment and Plan POD 1 Lap nehemiah, labs improved PLAN Reg heart healthy diet oob pain control ok to d/c after lunch if tolerating f/u 1 week with Guerrero Suero MD Feb 04, 2018 11:20
--- NOTE | 2018-02-05 07:49 | HHI.DS ---
Discharge Summary Admission Date Feb 02, 2018 at 11:37 Discharge Date: Feb 04, 2018 Admitting Diagnosis Gallstone Pancreatitis (1) Acute gallstone pancreatitis Plan: Lipase is normalized today. Liver enzymes are improving. No leukocytosis. Status post laparoscopic cholecystectomy 02/03 Pending surgical clearance, expect discharge 02/04 but possibly 02/05. Patient did receive Dilaudid this morning but he is eager to go home, is fully ambulatory, passing flatus and is tolerating food. Hospital course: Patient was admitted 02/02 with suspicion for acute gallstone pancreatitis. Liver enzymes suspected acute gallstone pancreatitis due to elevated lipase and liver enzymes. No leukocytosis on admission. CT abdomen 02/02: gallbladder wall thickness suggestive of cholecystitis. Did not meet criteria for severe pancreatitis on admission or at 48 hour loki. -Rocephin x1 on 02/02 preoperatively -discontinued aggressive fluid hydration as patient tolerating PO preoperatively and postoperatively General surgery consulted: appreciate management * Laparoscopic cholecystectomy 02/03 Gastroenterology consulted: appreciate recommendations * MRCP: Numerous gallstones with mild gallbladder wall thickening. Mildly ductal dilation but without definite evidence for choledocholithiasis Medications: * [place] 7.5 for pain 1-5, [place] 15 for pain 6-10 * Dilaudid for breakthrough pain, given at approximate 7:30 AM on 02/04 * Patient is taking Renita-Colace 1 tab p.o. twice daily ICD Codes: K85.10 - Biliary acute pancreatitis without necrosis or infection Status: Acute (2) Depression, major Plan: Chronic, stable, continue Escitalopram 20mg daily. Not currently symptomatic. ICD Codes: F32.9 - Major depressive disorder, single episode, unspecified Status: Chronic (3) Legal blindness Plan: Chronic. Due to BEST disease, congenital. Acuity reportedly 20/400 to 20/ 800. Activity OOB with assistance Other assistance to be offered as needed ICD Codes: H54.8 - Legal blindness, as defined in [place] Status: Chronic Consultants General surgery GI Procedures Laparoscopic cholecystectomy 02/03 Brief History Patient is a 37 year old male who presented via [facility] for severe nausea, vomiting , and abdominal pain and was found to have cholecystitis on evaluation. This admission is associated with second ED visit over the last 24 hours. He came to ED yesterday evening because he had snack 8pm, and five minutes later had significant chest/epigastric pain. On arrival to ED workup resulted in troponin negative, EKG normal, CXR wnl. Blood work at that time unremarkable with notably normal lipase and liver enzymes. He was sent home. At home overnight, patient starting having cold chills, burping with nausea and then vomiting mucus and bile.He reported some blood in vomitus more recently, thinks it was from his throat which is now sore. Vomited at least 15x since symptoms started, but improved since receiving antiemetics. He notes the abdominal pain located in epigastric area is constant, radiating to bilateral scapular area. Initially pain was sharp, stabbing, now more of an achy, throbbing pain. "Didn't feel right." No fevers at home. No sick contacts. Has loose stool at baseline but they have been worse over the last few weeks. He has not had these symptoms in the past before but notes he had gastric sleeve surgery 2015. He has epigastric pain at that time and was discharged from the urgent care with two weeks of an antacid medication (does not know which). He has not followed up with a doctor since then. Pain medications given in ED helping with the pain. CBC/BMP: 02/04/18 0605 02/04/18 0605 Significant Findings Laboratory Tests Test 02/02/18 08:25 02/02/18 19:33 02/04/18 06:05 Neutrophils (%) (Auto) 87.1 % (16.0-70.0) 82.4 % (16.0-70.0) Lymphocytes (%) (Auto) 5.5 % (9.0-44.0) Neutrophils # (Auto) 8.1 TH/MM3 (1.8-7.7) 7.9 TH/MM3 (1.8-7.7) Lymphocytes # (Auto) 0.5 TH/MM3 (1.0-4.8) 0.9 TH/MM3 (1.0-4.8) Activated Partial Thromboplast Time 23.2 SEC (24.3-30.1) Random Glucose 161 MG/DL (74-106) Aspartate Amino Transf (AST/SGOT) 573 U/L (15-37) 167 U/L (15-37) Alanine Aminotransferase (ALT/SGPT) 430 U/L (12-78) 395 U/L (12-78) Total Bilirubin 2.8 MG/DL (0.2-1.0) 1.3 MG/DL (0.2-1.0) Potassium Level 3.4 MEQ/L (3.5-5.1) Estimat Glomerular Filtration Rate 71 ML/MIN (>89) Lactate Dehydrogenase 627 U/L (87-241) Lipase 1062 U/L (73-393) Urine Color DARK-YELLOW (YELLW/STRAW) Urine Ketones 10 mg/dL (NEG) Urine Bilirubin SMALL (NEG) Urine Urobilinogen 4.0 MG/DL (LESS THAN Urine Mucus FEW /lpf (OCC) Total Protein 6.3 GM/DL (6.4-8.2) Albumin 3.2 GM/DL (3.4-5.0) Direct Bilirubin 0.6 MG/DL (0.0-0.2) Carbon Dioxide Level 32.3 MEQ/L (21.0-32.0) Imaging Last Impressions Abdomen/Pelvis CT 02/02/18 0810 Signed Impressions: Service Date/Time: Friday, February 02, 2018 08:55 - CONCLUSION: 1. Mildly distended, thick-walled gallbladder with minimal pericholecystic fluid suggesting acute cholecystitis. Clinical correlation is recommended. 2. Mild degenerative changes and scoliosis of the thoracolumbar spine. Johnnie Bowden MD Cholangiopancreatography MRI 02/02/18 0000 Signed Impressions: Service Date/Time: Friday, February 02, 2018 13:51 - CONCLUSION: 1. Numerous gallstones with mild gallbladder wall thickening and a small amount pericholecystic fluid and edema. Differential diagnosis includes a mild cholecystitis. Mildly ductal dilatation but without definite evidence for choledocholithiasis. Vijay Da Silva MD PE at Discharge GEN: Well-developed, well-nourished patient. No acute distress. Resting comfortably in bed. CV: Regular rate and rhythm without obvious murmurs LUNGS: Clear to auscultation bilaterally. Normal respiratory effort. No wheezes , rales, rhonchi. GI: Soft, nondistended. Bowel sounds present. Postsurgical bandages over trocar sites noted without any discharge. EXT: No edema. No calf tenderness. NEURO/PSYCH: Awake, alert. Appropriate insight and judgment. Normal speech. Hospital Course Patient is a 37 year old male who presented to [facility] with nausea, vomiting , abdominal pain and imaging studies consistent with acute cholecystitis gallstones. He was admitted for pain control and surgical management. Surgery was consulted and performed laparoscopic cholecystectomy on Day 2, and his postoperative course was uncomplicated. He was discharged in stable condition. General surgery follow up scheduled by surgical inpt team. Discharged in stable condition on POD #1. Pt Condition on Discharge: Stable Discharge Disposition: Discharge Home Discharge Instructions DIET: Follow Instructions for: Gastric Bypass Activities you can perform: Regular-No Restrictions, Shower Only-No Bath Other Activity Instructions: Avoid direct water on surgical sites Follow up Referrals: PCP Follow-up - 1 Week PCP Follow-up Surgical - 1 Week with Kingston Ugarte MD Surgical New Medications: Hydrocodone-Acetaminophen ([place]) 7.5-325 mg Tab 1-2 TAB PO Q4H PRN for PAIN, #30 TAB 0 Refills Continued Medications: Escitalopram (Escitalopram) 20 Mg Tab 20 MG PO DAILY, #30 TAB 0 Refills Zolpidem (Zolpidem) 10 Mg Tab 10 MG PO HS PRN for INSOMNIA, TAB 0 Refills Lilia Costa MD Feb 05, 2018 07:49
== END 2018-02-04 14:39 | disposition home or self-care (01) | DRG 418 ==
LOC: NEPC 07:28 → NEDA 11:37 → N05B 15:50
PROVIDERS: ADMIT Family Medicine; ATTEND Family Medicine
PROC: 0FT44ZZ Resection of Gallbladder, Percutaneous Endoscopic Approach (ICD-10-PCS; principal; 2018-02-03 07:49)
DX: K85.10 Biliary acute pancreatitis without necrosis or infection (principal); K80.00 Calculus of gallbladder with acute cholecystitis without obstruction; F32.1 Major depressive disorder, single episode, moderate; E66.01 Morbid (severe) obesity due to excess calories; F41.9 Anxiety disorder, unspecified; G47.00 Insomnia, unspecified; R07.9 Chest pain, unspecified; H35.50 Unspecified hereditary retinal dystrophy; H54.8 Legal blindness, as defined in USA; Z98.84 Bariatric surgery status; Z92.21 Personal history of antineoplastic chemotherapy; Z85.47 Personal history of malignant neoplasm of testis
CPT/HCPCS: 74177; 74181; 76377; 80053; 80061; 81001; 82248; 83615; 83690; 85025; 85610; 85730; 88304; 93005; 94150; 96361; 96374; 96375; J0131; J0696; J1100; J1170; J1885; J2250; J2270; J2370; J2405; J2710; J3010; J3480; J7030; J7120; Q9967